=== PATIENT | female | born 1990 | race Two or more races ===

== ENCOUNTER 2018-10-12 17:10 | Day surgery (SDC) | payer BC ==
--- NOTE | 2018-10-12 17:36 | EDM.PDOC ---
ED HPI GENERAL MEDICAL PROBLEM - General Chief Complaint: GUARD DANCE HALL Problem Stated Complaint: 5 WEEKS PREG. BLEEDING Time Seen by Provider: 10/12/18 17:28 Source of Information: Reports: [facility] Records History Limitations: Reports: No Limitations - History of Present Illness INITIAL COMMENTS - FREE TEXT/NARRATIVE: HISTORY AND PHYSICAL: History of present illness: Patient is a 28-year-old female who presents to the ED today with concern of bleeding, and abdominal pain in early . Patient states she had an initial OB/confirmation of at [facility], however, she is desiring transfer of care to [facility]. Patient states the bleeding has been ongoing for the past several days. Patient states today, however, she began to experience lower left abdominal pain. She rates her pain a 10 out of 10 and sharp. She states the pain is worse when she touches her abdomen and better when she lays down. Patient states that initially she just had some brown spotting over the past day she has had a brighter red blood and today has had to wear a pad. She has only gone through 1 pad today. Patient has a history of 2 prior but denies any other abdominal surgeries. Patient has had bowel movements per her normal. Her last bowel movement was last night was normal for her. She denies any difficulties urinating. She denies any abnormal vaginal discharge other than bleeding. Patient denies fever, chills, chest pain, shortness of breath, or cough. Denies headache, neck stiff ness, change in vision, syncope, or near syncope. Denies nausea, vomiting, diarrhea, constipation, or dysuria. Has not noted any blood in urine or stool. Patient has been eating and drinking appropriately. Review of systems: As per history of present illness and below otherwise all systems reviewed and negative. Past medical history: As per history of present illness and as reviewed below otherwise noncontributory. Surgical history: As per history of present illness and as reviewed below otherwise noncontributory. Social history: See social history for further information Family history: As per history of present illness and as reviewed below otherwise noncontributory. Physical exam: General: Patient is alert, oriented, and in no acute distress. Patient sitting comfortably on exam table. HEENT: Atraumatic, normocephalic, pupils equal and reactive bilaterally, negative for conjunctival pallor or scleral icterus, mucous membranes moist, TMs normal bilaterally, throat clear, neck supple, nontender, trachea midline. No drooling or trismus noted. No meningeal signs. No hot potato voice noted. Lungs: Clear to auscultation, breath sounds equal bilaterally, chest nontender. Heart: S1S2, regular rate and rhythm without overt murmur Abdomen: Exam of abdomen limited due to pain. Severe pain to palpation of the left lower quadrant/suprapubic area. Positive bowel sounds heard throughout all quadrants. Soft, nondistended. Negative for masses or hepatosplenomegaly. Negative for costovertebral tenderness. Pelvis: Stable nontender. Genitourinary: External genitalia within normal limits. There is a moderate amount of bright red blood in the vaginal vault. Cervical os is closed. Negative cervical motion tenderness. The uterus is approximately 6-8 weeks in size and more tender on the left. Rectal: Deferred. Skin: Intact, warm, dry. No lesions or rashes noted. Extremities: Atraumatic, negative for cords or calf pain. Neurovascular unremarkable. Neuro: Awake, alert, oriented. Cranial nerves II through XII unremarkable. Cerebellum unremarkable. Motor and sensory unremarkable throughout. Exam nonfocal. Notes: We'll do labs and imaging today. Dr. Florez was consulted on patient and has come in to see patient. Please see Dr. Florez's formal consult for definitive disposition. Patient was taken to the OR with Dr. Florez. Diagnostics: CBC, CMP, UA, urine hCG, hcg quant, Rh/blood type, TVUS Therapeutics: Saline Impression: Ectopic Urinary Tract Infection Plan: 1. Please see Dr. Florez's formal consult for definitive plan 2. Patient taken to OR with Dr. Florez Definitive disposition and diagnosis as appropriate pending reevaluation and review of above. Lower Abdomen Pain Score (Numeric/FACES): 7 - Related Data Allergies Allergy/AdvReac Type Severity Reaction Status Date / Time No Known Allergies Allergy Verified 10/13/18 05:20 Home Meds: Home Meds [id number]/Iron Fumarate/FA/DSS [ 19 Tablet] 1 tab PO DAILY 10/12/18 [ History] Past Medical History Respiratory History: Reports: COPD GUARD DANCE HALL History: Reports: Other GUARD DANCE HALL History: Pt states being 5 weeks Psychiatric History: Reports: Anxiety - Infectious Disease History Infectious Disease History: Reports: Chicken Pox - Past Surgical History Female Surgical History: Reports: Section Social & Family History - Tobacco Use Smoking Status *Q: Never Smoker - Recreational Drug Use Recreational Drug Use: No ED ROS GENERAL - Review of Systems Review Of Systems: ROS reveals no pertinent complaints other than HPI. ED EXAM - Physical Exam Exam: See Below (see dictation) Course - Vital Signs Last Recorded V/S: Last Vital Signs Temp 36.9 C 10/13/18 07:40 Pulse 121 H 10/13/18 07:40 Resp 16 10/13/18 07:40 BP 116/59 L 10/13/18 07:40 Pulse Ox 98 10/13/18 07:40 - Orders/Labs/Meds Labs: Laboratory Tests 10/12/18 10/12/18 10/12/18 Range/Units 17:39 17:53 17:53 WBC 6.20 (4.0-11.0) K/uL RBC 4.70 (4.30-5.90) M/uL Hgb 14.5 (12.0-16.0) g/dL Hct 40.9 (36.0-46.0) % MCV 87.0 (80.0-98.0) fL MCH 30.9 (27.0-32.0) pg MCHC 35.5 (31.0-37.0) g/dL RDW Std Deviation 39.7 (28.0-62.0) fl RDW Coeff of Sonlai 12 (11.0-15.0) % Plt Count 250 (150-400) K/uL MPV 10.60 (7.40-12.00) fL Neut % (Auto) 51.4 (48.0-80.0) % Lymph % (Auto) 38.2 (16.0-40.0) % [place] % (Auto) 7.7 (0.0-15.0) % Eos % (Auto) 2.4 (0.0-7.0) % Baso % (Auto) 0.3 (0.0-1.5) % Neut # (Auto) 3.2 (1.4-5.7) K/uL Lymph # (Auto) 2.4 (0.6-2.4) K/uL [place] # (Auto) 0.5 (0.0-0.8) K/uL Eos # (Auto) 0.2 (0.0-0.7) K/uL Baso # (Auto) 0.0 (0.0-0.1) K/uL Nucleated RBC % 0.0 /100WBC Nucleated RBCs # 0 K/uL Sodium (136-145) mmol/L Potassium (3.5-5.1) mmol/L Chloride (98-107) mmol/L Carbon Dioxide (21.0-32.0) mmol/L BUN (7.0-18.0) mg/dL Creatinine (0.6-1.0) mg/dL Est Cr Clr Drug Dosing mL/min Estimated GFR (MDRD) ml/min Glucose (74-106) mg/dL Calcium (8.5-10.1) mg/dL HCG, Quant 507.0 mIU/mL Urine Color YELLOW Urine Appearance SLT CLOUDY Urine pH 5.5 (5.0-8.0) Ur Specific [place] 1.025 (1.001-1.035) Urine Protein NEGATIVE (NEGATIVE) mg/dL Urine Glucose (UA) NEGATIVE (NEGATIVE) mg/dL Urine Ketones NEGATIVE (NEGATIVE) mg/dL Urine Occult Blood LARGE H (NEGATIVE) Urine Nitrite NEGATIVE (NEGATIVE) Urine Bilirubin NEGATIVE (NEGATIVE) Urine Urobilinogen 0.2 (<2.0) EU/dL Ur Leukocyte Esterase TRACE H (NEGATIVE) Urine RBC 0-2 (0-2/HPF) Urine WBC 4-6 (0-5/HPF) Ur Epithelial Cells MODERATE (NONE-FEW) Urine Bacteria FEW (NEGATIVE) Urine HCG, Qual (NEGATIVE) Gayatri species DNA (NEGATIVE) Gardnerella DNA Probe (NEGATIVE) Trichomonas DNA Probe (NEGATIVE) Blood Type 10/12/18 10/12/18 10/12/18 Range/Units 17:53 18:45 19:03 WBC (4.0-11.0) K/uL RBC (4.30-5.90) M/uL Hgb (12.0-16.0) g/dL Hct (36.0-46.0) % MCV (80.0-98.0) fL MCH (27.0-32.0) pg MCHC (31.0-37.0) g/dL RDW Std Deviation (28.0-62.0) fl RDW Coeff of Sonali (11.0-15.0) % Plt Count (150-400) K/uL MPV (7.40-12.00) fL Neut % (Auto) (48.0-80.0) % Lymph % (Auto) (16.0-40.0) % [place] % (Auto) (0.0-15.0) % Eos % (Auto) (0.0-7.0) % Baso % (Auto) (0.0-1.5) % Neut # (Auto) (1.4-5.7) K/uL Lymph # (Auto) (0.6-2.4) K/uL [place] # (Auto) (0.0-0.8) K/uL Eos # (Auto) (0.0-0.7) K/uL Baso # (Auto) (0.0-0.1) K/uL Nucleated RBC % /100WBC Nucleated RBCs # K/uL Sodium (136-145) mmol/L Potassium (3.5-5.1) mmol/L Chloride (98-107) mmol/L Carbon Dioxide (21.0-32.0) mmol/L BUN (7.0-18.0) mg/dL Creatinine (0.6-1.0) mg/dL Est Cr Clr Drug Dosing mL/min Estimated GFR (MDRD) ml/min Glucose (74-106) mg/dL Calcium (8.5-10.1) mg/dL HCG, Quant mIU/mL Urine Color Urine Appearance Urine pH (5.0-8.0) Ur Specific [place] (1.001-1.035) Urine Protein (NEGATIVE) mg/dL Urine Glucose (UA) (NEGATIVE) mg/dL Urine Ketones (NEGATIVE) mg/dL Urine Occult Blood (NEGATIVE) Urine Nitrite (NEGATIVE) Urine Bilirubin (NEGATIVE) Urine Urobilinogen (<2.0) EU/dL Ur Leukocyte Esterase (NEGATIVE) Urine RBC (0-2/HPF) Urine WBC (0-5/HPF) Ur Epithelial Cells (NONE-FEW) Urine Bacteria (NEGATIVE) Urine HCG, Qual POSITIVE (NEGATIVE) Gayatri species DNA NEGATIVE (NEGATIVE) Gardnerella DNA Probe POSITIVE H (NEGATIVE) Trichomonas DNA Probe NEGATIVE (NEGATIVE) Blood Type A POSITIVE 10/13/18 10/13/18 Range/Units 05:30 05:30 WBC 7.87 (4.0-11.0) K/uL RBC 4.40 (4.30-5.90) M/uL Hgb 13.6 (12.0-16.0) g/dL Hct 38.2 (36.0-46.0) % MCV 86.8 (80.0-98.0) fL MCH 30.9 (27.0-32.0) pg MCHC 35.6 (31.0-37.0) g/dL RDW Std Deviation 38.5 (28.0-62.0) fl RDW Coeff of Sonali 12 (11.0-15.0) % Plt Count 221 (150-400) K/uL MPV 10.70 (7.40-12.00) fL Neut % (Auto) 89.0 H (48.0-80.0) % Lymph % (Auto) 9.4 L (16.0-40.0) % [place] % (Auto) 1.5 (0.0-15.0) % Eos % (Auto) 0.0 (0.0-7.0) % Baso % (Auto) 0.1 (0.0-1.5) % Neut # (Auto) 7.0 H (1.4-5.7) K/uL Lymph # (Auto) 0.7 (0.6-2.4) K/uL [place] # (Auto) 0.1 (0.0-0.8) K/uL Eos # (Auto) 0.0 (0.0-0.7) K/uL Baso # (Auto) 0.0 (0.0-0.1) K/uL Nucleated RBC % 0.0 /100WBC Nucleated RBCs # 0 K/uL Sodium 137 (136-145) mmol/L Potassium 4.3 (3.5-5.1) mmol/L Chloride 104 (98-107) mmol/L Carbon Dioxide 24.1 (21.0-32.0) mmol/L BUN 14 (7.0-18.0) mg/dL Creatinine 0.9 (0.6-1.0) mg/dL Est Cr Clr Drug Dosing 66.25 mL/min Estimated GFR (MDRD) > 60.0 ml/min Glucose 118 H (74-106) mg/dL Calcium 8.0 L (8.5-10.1) mg/dL HCG, Quant mIU/mL Urine Color Urine Appearance Urine pH (5.0-8.0) Ur Specific [place] (1.001-1.035) Urine Protein (NEGATIVE) mg/dL Urine Glucose (UA) (NEGATIVE) mg/dL Urine Ketones (NEGATIVE) mg/dL Urine Occult Blood (NEGATIVE) Urine Nitrite (NEGATIVE) Urine Bilirubin (NEGATIVE) Urine Urobilinogen (<2.0) EU/dL Ur Leukocyte Esterase (NEGATIVE) Urine RBC (0-2/HPF) Urine WBC (0-5/HPF) Ur Epithelial Cells (NONE-FEW) Urine Bacteria (NEGATIVE) Urine HCG, Qual (NEGATIVE) Gayatri species DNA (NEGATIVE) Gardnerella DNA Probe (NEGATIVE) Trichomonas DNA Probe (NEGATIVE) Blood Type Meds: Medications Discontinued Medications Generic Name Dose Route Start Last Admin Trade Name Freq PRN Reason Stop Dose Admin Albuterol 2.5 mg 10/12/18 23:40 Proventil Neb Soln NEB Q6HRRT PRN Wheezing Atropine Sulfate 0.4 mg 10/12/18 23:40 Atropine 0.1 Mg/Ml IVPUSH Q5M PRN Bradycardia Dexamethasone Confirm 10/12/18 22:23 Dexamethasone Administered 10/12/18 22:24 Dose 20 mg .ROUTE .STK-MED ONE Fentanyl Confirm 10/12/18 22:23 Sublimaze Administered 10/12/18 22:24 Dose 250 mcg .ROUTE .STK-MED ONE Fentanyl 50 mcg 10/12/18 23:40 Sublimaze IVPUSH 10/13/18 23:40 Q5M PRN Pain (severe 7-10) Hydralazine HCl 5 mg 10/12/18 23:40 Apresoline IVPUSH ONETIME PRN Hypertension Hydralazine HCl 10 mg 10/12/18 23:40 Apresoline IVPUSH ONETIME PRN Hypertension Hydromorphone HCl 0.25 mg 10/12/18 23:40 Dilaudid IVPUSH 10/13/18 23:40 Q10M PRN Pain (severe 7-10) Sodium Chloride 1,000 mls @ 150 mls/hr 10/12/18 21:25 10/12/18 21:26 Normal Saline IV 10/13/18 04:04 150 mls/hr .Bolus ONE Administration Ketorolac Tromethamine Confirm 10/12/18 22:23 Toradol Administered 10/12/18 22:24 Dose 30 mg .ROUTE .STK-MED ONE Ketorolac Tromethamine 30 mg 10/12/18 23:52 10/13/18 01:24 Toradol IVPUSH 10/12/18 23:53 Not Given ONETIME ONE Ketorolac Tromethamine 30 mg 10/12/18 23:52 Toradol IVPUSH 10/17/18 23:52 Q6H PRN Pain (severe 7-10) Labetalol HCl 10 mg 10/12/18 23:40 Normodyne IVPUSH 10/13/18 23:40 Q6H PRN Hypertension Lidocaine Confirm 10/12/18 22:23 Xylocaine-Mpf 2% Administered 10/12/18 22:24 Dose 5 ml .ROUTE .STK-MED ONE Meperidine HCl 12.5 mg 10/12/18 23:40 Demerol IVPUSH ONETIME PRN Shivering Meperidine HCl 25 mg 10/12/18 23:40 Demerol IV ONETIME PRN Shivering Metoclopramide HCl 10 mg 10/12/18 23:40 Reglan IVPUSH ONETIME PRN Nausea Midazolam HCl Confirm 10/12/18 22:23 Versed 1 Mg/Ml Administered 10/12/18 22:24 Dose 2 mg .ROUTE .STK-MED ONE Morphine Sulfate 4 mg 10/12/18 23:40 Morphine IVPUSH 10/13/18 23:40 Q10M PRN Pain (severe 7-10) Morphine Sulfate 4 mg 10/12/18 23:52 Morphine IVPUSH Q2H PRN Pain (severe 7-10) Naloxone HCl 0.1 mg 10/12/18 23:40 Narcan IVPUSH ONETIME PRN Respiratory Depression Octyl Cyanoacrylate Confirm 10/12/18 23:49 Dermabond Advance Administered 10/12/18 23:50 Dose 1 applic .ROUTE .STK-MED ONE Ondansetron HCl Confirm 10/12/18 22:23 Zofran Administered 10/12/18 22:24 Dose 8 mg .ROUTE .STK-MED ONE Ondansetron HCl 8 mg 10/12/18 23:40 Zofran IVPUSH ONETIME PRN Nausea Ondansetron HCl 4 mg 10/12/18 23:52 Zofran IVPUSH Q6H PRN Nausea/Vomiting Oxycodone/Acetaminophen 1 tab 10/12/18 23:52 Percocet 325-5 Mg PO Q4H PRN Pain (moderate 4-6) Oxycodone/Acetaminophen 2 tab 10/12/18 23:52 Percocet 325-5 Mg PO Q4H PRN Pain (moderate 4-6) Phenylephrine HCl Confirm 10/12/18 23:54 Phenylephrine In Ns 100 Mcg/Ml Administered 10/12/18 23:55 Dose 1 mg .ROUTE .STK-MED ONE Promethazine HCl 12.5 mg 10/12/18 23:40 Phenergan IM ONETIME PRN Nausea Promethazine HCl 25 mg 10/12/18 23:52 Phenergan IM Q6H PRN Nausea/Vomiting Propofol Confirm 10/12/18 22:23 Diprivan 20 Ml Administered 10/12/18 22:24 Dose 200 mg .ROUTE .STK-MED ONE Rocuronium [place] Confirm 10/12/18 22:25 Zemuron Administered 10/12/18 22:26 Dose 100 mg .ROUTE .STK-MED ONE Scopolamine 1.5 mg 10/12/18 23:40 Transderm-Scop TRDERM Q72H PRN Nausea Sodium Chloride 10 ml 10/12/18 20:58 10/12/18 21:26 Saline Flush FLUSH 10 ml ASDIRECTED PRN Administration Keep Vein Open Sodium Chloride 2.5 ml 10/12/18 20:58 10/12/18 21:26 Saline Flush FLUSH 2.5 ml ASDIRECTED PRN Administration Keep Vein Open Sugammadex Sodium Confirm 10/12/18 23:47 Bridion Administered 10/12/18 23:48 Dose 200 mg .ROUTE .STK-MED ONE Departure - Departure Time of Disposition: 11:59 Disposition: Still A Patient 30 Clinical Impression: Ectopic Qualifiers: Location of ectopic : tubal Intrauterine status: without intrauterine Laterality: right Qualified Code(s): O00.101 - Right tubal without intrauterine Urinary tract infection Qualifiers: Urinary tract infection type: site unspecified Hematuria presence: without hematuria Qualified Code(s): N39.0 - Urinary tract infection, site not specified - Discharge Information
--- NOTE | 2018-10-12 20:52 | US ---
INDICATION: , vaginal bleeding. TECHNIQUE: Ultrasound pelvis transvaginal for better assessment or to better visualize the endometrium. Real-time sonographic images with spectral and color Doppler imaging of the ovaries were obtained. COMPARISON: None FINDINGS: Uterus: 9.4 x 6.0 x 6.7 cm. Posterior intramural fibroid measuring 2.3 x 1.2 x 2.6 centimeters. Endometrium: Transvaginal imaging was performed to better evaluate the endometrium. Endometrial thickness measures 10 mm. No sign of endometrial mass or fluid. Right ovary measures 2.8 x 3.0 x 2.2 centimeters with normal blood flow. Adjacent to the right ovary is a hypoechoic vascular lesion which appears separate from the ovary measuring 2.7 x 2.4 x 3.9 centimeters. Left ovary measures 1.6 x 1.7 x 2.0 centimeters with normal blood flow. Cul-de-sac: Small free fluid. IMPRESSION: 1. No intrauterine gestation seen. Within the right adnexa there is avascular 3.9 x 2.4 x 2.7 centimeter lesion which appears separate from the right ovary. With the clinical history of a positive , this is considered suspicious for an ectopic . Small free fluid right adnexa. Results called to Dr. Navarro at 2049 on 10/12/2018 Dictated by Catracho Massey MD @ Oct 12 2018 8:37PM Signed by Dr. Catracho Massey @ Oct 12 2018 8:51PM
[2018-10-12] MEDS ORDERED: Sodium Chloride 0.9% 10 ML Syringe FLUSH PRN (20:58)
[2018-10-12] MEDS ORDERED: Sodium Chloride 0.9% 2.5 ML Syringe FLUSH PRN (20:58)
[2018-10-12] MEDS ORDERED: Sodium Chloride 0.9% 1,000 ML IV ONE (21:25)
[2018-10-12] MEDS ORDERED: fentaNYL 250 MCG/5 ML SDV ONE (22:23)
[2018-10-12] MEDS ORDERED: Dexamethasone 4 MG/ML 5 ML MDV ONE (22:23)
[2018-10-12] MEDS ORDERED: Propofol 200 MG/20 ML SDV ONE (22:23)
[2018-10-12] MEDS ORDERED: Ondansetron 4 MG/2 ML SDV ONE (22:23)
[2018-10-12] MEDS ORDERED: Lidocaine 2% 5 ML SDV ONE (22:23)
[2018-10-12] MEDS ORDERED: Midazolam 1 MG/ML 2 ML SDV ONE (22:23)
[2018-10-12] MEDS ORDERED: Ketorolac 30 MG/ML SDV ONE (22:23)
[2018-10-12] MEDS ORDERED: Rocuronium 100 MG/10 ML Syringe ONE (22:25)
[2018-10-12] MEDS ORDERED: Albuterol 0.083% 2.5 MG/3 ML Neb Soln NEB PRN (23:40)
[2018-10-12] MEDS ORDERED: Atropine 0.1 MG/ML 10 ML Syringe IVPUSH PRN (23:40)
[2018-10-12] MEDS ORDERED: fentaNYL 100 MCG/2 ML SDV IVPUSH PRN (23:40)
[2018-10-12] MEDS ORDERED: Promethazine 25 MG/ML SDV IM PRN ×2 (23:40→23:52)
[2018-10-12] MEDS ORDERED: Morphine 4 MG/ML Syringe IVPUSH PRN ×2 (23:40→23:52)
[2018-10-12] MEDS ORDERED: Meperidine PF 25 MG/ML Syringe IVPUSH PRN (23:40)
[2018-10-12] MEDS ORDERED: Ondansetron 4 MG/2 ML SDV IVPUSH PRN ×2 (23:40→23:52)
[2018-10-12] MEDS ORDERED: hydrALAZINE 20 MG/ML SDV IVPUSH PRN ×2 (23:40)
[2018-10-12] MEDS ORDERED: Meperidine PF 25 MG/ML Syringe IV PRN (23:40)
[2018-10-12] MEDS ORDERED: Scopolamine 1.5 MG Transdermal Patch TRDERM PRN (23:40)
[2018-10-12] MEDS ORDERED: Metoclopramide 10 MG/2 ML SDV IVPUSH PRN (23:40)
[2018-10-12] MEDS ORDERED: HYDROmorphone 2 MG/ML SDV IVPUSH PRN (23:40)
[2018-10-12] MEDS ORDERED: Labetalol 20 MG/4 ML Syringe IVPUSH PRN (23:40)
[2018-10-12] MEDS ORDERED: Acetaminophen/HYDROcodone 325-5 MG Tab PO PRN (23:40)
[2018-10-12] MEDS ORDERED: Naloxone 0.4 MG/ML Syringe IVPUSH PRN (23:40)
--- NOTE | 2018-10-12 23:40 | PCM.PREANE ---
Preanesthetic Assessment - Anesthesia/Transfusion/Family Hx Anesthesia History: Prior Anesthesia Without Reaction Family History of Anesthesia Reaction: No - Review of Systems General: No Symptoms Pulmonary: No Symptoms Cardiovascular: No Symptoms Gastrointestinal: No Symptoms, Abdominal Pain, Nausea Neurological: No Symptoms - Physical Assessment NPO Status Date: 10/12/18 NPO Status Time: 13:00 Pulse: 80 O2 Sat by Pulse Oximetry: 100 Respiratory Rate: 14 Blood Pressure: 115/75 Vital Signs: Last Vital Signs Temp 36.5 C 10/12/18 21:59 Pulse 102 H 10/12/18 21:59 Resp 14 10/12/18 21:59 BP 124/76 10/12/18 21:59 Pulse Ox 100 10/12/18 21:59 Weight: 47 kg ASA Class: 1E Mental Status: Alert & Oriented x3 Airway Class: Mallampati = 1 Dentition: Reports: Normal Dentition Lungs: Clear to Auscultation, Normal Respiratory Effort Cardiovascular: Regular Rate, Regular Rhythm - Lab Values: Laboratory Last Values WBC 6.20 K/uL (4.0-11.0) 10/12/18 17:53 RBC 4.70 M/uL (4.30-5.90) 10/12/18 17:53 Hgb 14.5 g/dL (12.0-16.0) 10/12/18 17:53 Hct 40.9 % (36.0-46.0) 10/12/18 17:53 MCV 87.0 fL (80.0-98.0) 10/12/18 17:53 MCH 30.9 pg (27.0-32.0) 10/12/18 17:53 MCHC 35.5 g/dL (31.0-37.0) 10/12/18 17:53 RDW Std Deviation 39.7 fl (28.0-62.0) 10/12/18 17:53 RDW Coeff of Sonali 12 % (11.0-15.0) 10/12/18 17:53 Plt Count 250 K/uL (150-400) 10/12/18 17:53 MPV 10.60 fL (7.40-12.00) 10/12/18 17:53 Neut % (Auto) 51.4 % (48.0-80.0) 10/12/18 17:53 Lymph % (Auto) 38.2 % (16.0-40.0) 10/12/18 17:53 [place] % (Auto) 7.7 % (0.0-15.0) 10/12/18 17:53 Eos % (Auto) 2.4 % (0.0-7.0) 10/12/18 17:53 Baso % (Auto) 0.3 % (0.0-1.5) 10/12/18 17:53 Neut # (Auto) 3.2 K/uL (1.4-5.7) 10/12/18 17:53 Lymph # (Auto) 2.4 K/uL (0.6-2.4) 10/12/18 17:53 [place] # (Auto) 0.5 K/uL (0.0-0.8) 10/12/18 17:53 Eos # (Auto) 0.2 K/uL (0.0-0.7) 10/12/18 17:53 Baso # (Auto) 0.0 K/uL (0.0-0.1) 10/12/18 17:53 Nucleated RBC % 0.0 /100WBC 10/12/18 17:53 Nucleated RBCs # 0 K/uL 10/12/18 17:53 HCG, Quant 507.0 mIU/mL 10/12/18 17:53 Urine Color YELLOW 10/12/18 17:39 Urine Appearance SLT CLOUDY 10/12/18 17:39 Urine pH 5.5 (5.0-8.0) 10/12/18 17:39 Ur Specific [place] 1.025 (1.001-1.035) 10/12/18 17:39 Urine Protein NEGATIVE mg/dL (NEGATIVE) 10/12/18 17:39 Urine Glucose (UA) NEGATIVE mg/dL (NEGATIVE) 10/12/18 17:39 Urine Ketones NEGATIVE mg/dL (NEGATIVE) 10/12/18 17:39 Urine Occult Blood LARGE (NEGATIVE) H 10/12/18 17:39 Urine Nitrite NEGATIVE (NEGATIVE) 10/12/18 17:39 Urine Bilirubin NEGATIVE (NEGATIVE) 10/12/18 17:39 Urine Urobilinogen 0.2 EU/dL (<2.0) 10/12/18 17:39 Ur Leukocyte Esterase TRACE (NEGATIVE) H 10/12/18 17:39 Urine RBC 0-2 (0-2/HPF) 10/12/18 17:39 Urine WBC 4-6 (0-5/HPF) 10/12/18 17:39 Ur Epithelial Cells MODERATE (NONE-FEW) 10/12/18 17:39 Urine Bacteria FEW (NEGATIVE) 10/12/18 17:39 Urine HCG, Qual POSITIVE (NEGATIVE) 10/12/18 18:45 Gayatri species DNA NEGATIVE (NEGATIVE) 10/12/18 19:03 Gardnerella DNA Probe POSITIVE (NEGATIVE) H 10/12/18 19:03 Trichomonas DNA Probe NEGATIVE (NEGATIVE) 10/12/18 19:03 Blood Type A POSITIVE 10/12/18 17:53 - Allergies Allergies/Adverse Reactions: Allergies Allergy/AdvReac Type Severity Reaction Status Date / Time No Known Allergies Allergy Verified 10/12/18 17:27 - Acknowledgements Anesthesia Type Planned: General Anesthesia Pt an Appropriate Candidate for the Planned Anesthesia: Yes Alternatives and Risks of Anesthesia Discussed w Pt/Guardian: Yes Pt/Guardian Understands and Agrees with Anesthesia Plan: Yes PreAnesthesia Questionnaire Respiratory History: Reports: COPD [employer]CH[employer]ICIAN History: Reports: Other OB/BYN History: Pt states being 5 weeks Psychiatric History: Reports: Anxiety - Infectious Disease History Infectious Disease History: Reports: Chicken Pox - Past Surgical History Female Surgical History: Reports: Section - SUBSTANCE USE Smoking Status *Q: Never Smoker Recreational Drug Use History: No - HOME MEDS Home Medications: Home Meds [id number]/Iron Fumarate/FA/DSS [ 19 Tablet] 1 tab PO DAILY 10/12/18 [ History] - CURRENT (IN HOUSE) MEDS Current Meds: Current Medications Sodium Chloride (Normal Saline) 1,000 mls @ 150 mls/hr IV .Bolus ONE Stop: 10/13/18 04:04 Last Admin: 10/12/18 21:26 Dose: 150 mls/hr Sodium Chloride (Saline Flush) 10 ml FLUSH ASDIRECTED PRN PRN Reason: Keep Vein Open Last Admin: 10/12/18 21:26 Dose: 10 ml Sodium Chloride (Saline Flush) 2.5 ml FLUSH ASDIRECTED PRN PRN Reason: Keep Vein Open Last Admin: 10/12/18 21:26 Dose: 2.5 ml Discontinued Medications Dexamethasone (Dexamethasone) Confirm Administered Dose 20 mg .ROUTE .STK-MED ONE Stop: 10/12/18 22:24 Fentanyl (Sublimaze) Confirm Administered Dose 250 mcg .ROUTE .STK-MED ONE Stop: 10/12/18 22:24 Ketorolac Tromethamine (Toradol) Confirm Administered Dose 30 mg .ROUTE .STK- MED ONE Stop: 10/12/18 22:24 Lidocaine (Xylocaine-Mpf 2%) Confirm Administered Dose 5 ml .ROUTE .STK-MED ONE Stop: 10/12/18 22:24 Midazolam HCl (Versed 1 Mg/Ml) Confirm Administered Dose 2 mg .ROUTE .STK-MED ONE Stop: 10/12/18 22:24 Ondansetron HCl (Zofran) Confirm Administered Dose 8 mg .ROUTE .STK-MED ONE Stop: 10/12/18 22:24 Propofol (Diprivan 20 Ml) Confirm Administered Dose 200 mg .ROUTE .STK-MED ONE Stop: 10/12/18 22:24 Rocuronium [place] (Zemuron) Confirm Administered Dose 100 mg .ROUTE .STK-MED ONE Stop: 10/12/18 22:26
[2018-10-12] MEDS ORDERED: Sugammadex Sodium 200 MG/2 ML VIAL ONE (23:47)
[2018-10-12] MEDS ORDERED: Octyl 2-Cyanoacrylate 1 Tube ONE (23:49)
[2018-10-12] MEDS ORDERED: Acetaminophen/oxyCODONE 325-5 MG Tab PO PRN ×2 (23:52)
[2018-10-12] MEDS ORDERED: Ketorolac 30 MG/ML SDV IVPUSH ONE (23:52)
[2018-10-12] MEDS ORDERED: Ketorolac 30 MG/ML SDV IVPUSH PRN (23:52)
[2018-10-12] MEDS ORDERED: Phenylephrine/Normal Saline 100 MCG/ML 10 ML Syringe ONE (23:54)
--- NOTE | 2018-10-12 23:55 | PCM.OPNOTE ---
- General Post-Op/Procedure Note Date of Surgery/Procedure: 10/12/18 Operative Procedure(s): D&E dignostic Laparascopy Post-Op Diagnosis: Same Anesthesia Technique: General LMA Primary Surgeon: Aleksandr Florez EBL in mLs: 50 Complications: None Condition: Fair
--- NOTE | 2018-10-13 00:37 | PCM48HPAN ---
Post Anesthesia Note - EVALUATION WITHIN 48HRS OF ANESTHETIC Vital Signs in Normal Range: Yes Patient Participated in Evaluation: Yes Respiratory Function Stable: Yes Airway Patent: Yes Cardiovascular Function Stable: Yes Hydration Status Stable: Yes Pain Control Satisfactory: Yes Nausea and Vomiting Control Satisfactory: Yes Mental Status Recovered: Yes Pulse Rate: 80 Resp Rate: 24 Blood Pressure: 115/75
--- NOTE | 2018-10-13 01:20 | CONS ---
DATE OF CONSULTATION: DATE OF : 1990 PRIMARY CARE PHYSICIAN: Uli PCP BRIEF HISTORY: Laquita is a 28-year-old patient. She is para 2-0-0-2. Both of them are delivered via vaginal delivery. Her last period is September 04. She had home positive test. The patient has had no care in this . She is about 6 weeks . She has a sudden onset of lower abdominal pain in the right lower quadrant and the patient is referred for the purpose of this consultation. I reviewed her ultrasound and I reviewed her lab work. In her lab work, she had a positive HCG level of 500. Her ultrasound shows empty uterus with adnexal mass and free fluid, highly suspicious for tubal . PHYSICAL EXAMINATION: On her examination, the patient's lower abdominal examination is guarding and tender. She has rebound tenderness mainly to the right side and pelvic examination is not performed at this time because of the patient's tenderness. ASSESSMENT: Most likely, the patient does have ruptured tubal . I discussed these findings with the patient and her and since her level is only 500, I gave them the option to have a medical treatment with methotrexate or a surgical treatment with a diagnostic laparoscopy. After explaining the advantage and disadvantage of the medical and surgical treatment, the patient and her have asked appropriate question and they elected to do with the surgical procedure and surgical treatment, so we can call the operative team and we are planning to do a diagnostic laparoscopy and treatment of tubal and also prior to that I am going to do dilatation and evacuation. Detail of the procedure discussed with the patient. Informed consent discussed with the patient. The patient signed informed consent. We will proceed to the operative room as soon as operative teams arrive to the hospital. BRIANNE GOLDSMITH /[id number]
--- NOTE | 2018-10-13 03:36 | OR ---
SURGEON: Aleksandr Florez MD DATE OF PROCEDURE: PREOPERATIVE DIAGNOSIS: Pelvic pain, suspecting tubal versus incomplete miscarriage. POSTOPERATIVE DIAGNOSIS: Pelvic pain, suspecting tubal versus incomplete miscarriage. OPERATION PERFORMED: D and E, diagnostic laparoscopy. PRIMARY SURGEON: Aleksandr Florez MD. SENIOR PROJECT ACCOUNTANT: YUDI prakash. ANESTHESIA: General, Cyrus Jacome. ESTIMATED BLOOD LOSS: 50 mL. COMPLICATIONS: None. FINDING: There was products of conception on the D and E and diagnostic laparoscopy was negative. INDICATION FOR SURGERY: This patient is 28, para 2-0-0-2. She had a positive test with a quant of 500. She has pelvic pain, especially on the right side. She had a pelvic ultrasound, which shows free fluid, empty uterus, and adnexal mass with a strong possible tubal . I did a consultation in the ER. I gave the patient a choice of medical therapy with methotrexate versus surgical therapy and after consultation the patient with her and her relative, she elected to have surgical therapy approach. So we scheduled her for a D and E and diagnostic laparoscopy. PROCEDURE IN DETAIL: The patient was brought to the OR, properly identified. After adequate level of anesthesia, the patient was placed in the lithotomy position, prepped and draped in sterile fashion as usual and then a straight catheter was used to empty the bladder and the cervix sequentially dilated to accommodate #7 cannula and the endometrial cavity was evacuated. Small product thinking and maybe products of conception seen is collected and sent for histopathology and then Hulka manipulator placed in the uterus for manipulation and after the surgeon and assistant golf course superintendent changed their gloves, operation shifted abdominally. Stab wound was done beneath the umbilicus. The Veress needle placed in the peritoneal cavity and that cavity insufflated to 3.5 L of carbon dioxide and then utilizing the Visiport technique, the peritoneal cavity is entered under direct vision. Once we entered, then 5 mm trocar placed in the left iliac fossa. Inspection of the pelvis revealed that the uterus is normal. There is no blood in the cul-de-sac. Both tubes and ovaries are visualized and they are completely normal, so tubal is ruled out. Once that is ruled out, the procedure ended. The instrument and hardware retrieved from the abdomen and the vagina and the multiple laparoscopic incisions were closed in layers. Instrument and sponge counts were correct. The patient tolerated the procedure well and went to recovery room in stable general condition. BRIANNE / RUPAL /[id number]
[2018-10-13 06:15] LABS: CHLORIDE,CL 104 mmol/L (98-107); SODIUM,NA 137 mmol/L (136-145)
--- NOTE | 2018-10-13 09:09 | PCM.SURGPN ---
- General Info Date of Service: 10/09/18 POD#: 1 Functional Status: Reports: Pain Controlled - Review of Systems General: Reports: No Symptoms HEENT: Reports: No Symptoms Pulmonary: Reports: No Symptoms Cardiovascular: Reports: No Symptoms Gastrointestinal: Reports: No Symptoms Genitourinary: Reports: No Symptoms Musculoskeletal: Reports: No Symptoms Skin: Reports: No Symptoms Neurological: Reports: No Symptoms Psychiatric: Reports: No Symptoms - Patient Data Vitals - Most Recent: Last Vital Signs Temp 36.9 C 10/13/18 07:40 Pulse 121 H 10/13/18 07:40 Resp 16 10/13/18 07:40 BP 116/59 L 10/13/18 07:40 Pulse Ox 98 10/13/18 07:40 Weight - Most Recent: 47 kg I&O - Last 24 Hours: Intake & Output 10/12/18 10/13/18 10/13/18 22:59 06:59 14:59 Intake Total 2000 Output Total 300 Balance 1700 Lab Results Last 24 Hrs: Laboratory Results - last 24 hr 10/12/18 10/12/18 10/12/18 Range/Units 17:39 17:53 17:53 WBC 6.20 (4.0-11.0) K/uL RBC 4.70 (4.30-5.90) M/uL Hgb 14.5 (12.0-16.0) g/dL Hct 40.9 (36.0-46.0) % MCV 87.0 (80.0-98.0) fL MCH 30.9 (27.0-32.0) pg MCHC 35.5 (31.0-37.0) g/dL RDW Std Deviation 39.7 (28.0-62.0) fl RDW Coeff of Sonali 12 (11.0-15.0) % Plt Count 250 (150-400) K/uL MPV 10.60 (7.40-12.00) fL Neut % (Auto) 51.4 (48.0-80.0) % Lymph % (Auto) 38.2 (16.0-40.0) % [place] % (Auto) 7.7 (0.0-15.0) % Eos % (Auto) 2.4 (0.0-7.0) % Baso % (Auto) 0.3 (0.0-1.5) % Neut # (Auto) 3.2 (1.4-5.7) K/uL Lymph # (Auto) 2.4 (0.6-2.4) K/uL [place] # (Auto) 0.5 (0.0-0.8) K/uL Eos # (Auto) 0.2 (0.0-0.7) K/uL Baso # (Auto) 0.0 (0.0-0.1) K/uL Nucleated RBC % 0.0 /100WBC Nucleated RBCs # 0 K/uL Sodium (136-145) mmol/L Potassium (3.5-5.1) mmol/L Chloride (98-107) mmol/L Carbon Dioxide (21.0-32.0) mmol/L BUN (7.0-18.0) mg/dL Creatinine (0.6-1.0) mg/dL Est Cr Clr Drug Dosing mL/min Estimated GFR (MDRD) ml/min Glucose (74-106) mg/dL Calcium (8.5-10.1) mg/dL HCG, Quant 507.0 mIU/mL Urine Color YELLOW Urine Appearance SLT CLOUDY Urine pH 5.5 (5.0-8.0) Ur Specific [place] 1.025 (1.001-1.035) Urine Protein NEGATIVE (NEGATIVE) mg/dL Urine Glucose (UA) NEGATIVE (NEGATIVE) mg/dL Urine Ketones NEGATIVE (NEGATIVE) mg/dL Urine Occult Blood LARGE H (NEGATIVE) Urine Nitrite NEGATIVE (NEGATIVE) Urine Bilirubin NEGATIVE (NEGATIVE) Urine Urobilinogen 0.2 (<2.0) EU/dL Ur Leukocyte Esterase TRACE H (NEGATIVE) Urine RBC 0-2 (0-2/HPF) Urine WBC 4-6 (0-5/HPF) Ur Epithelial Cells MODERATE (NONE-FEW) Urine Bacteria FEW (NEGATIVE) Urine HCG, Qual (NEGATIVE) Gayatri species DNA (NEGATIVE) Gardnerella DNA Probe (NEGATIVE) Trichomonas DNA Probe (NEGATIVE) Blood Type 10/12/18 10/12/18 10/12/18 Range/Units 17:53 18:45 19:03 WBC (4.0-11.0) K/uL RBC (4.30-5.90) M/uL Hgb (12.0-16.0) g/dL Hct (36.0-46.0) % MCV (80.0-98.0) fL MCH (27.0-32.0) pg MCHC (31.0-37.0) g/dL RDW Std Deviation (28.0-62.0) fl RDW Coeff of Sonali (11.0-15.0) % Plt Count (150-400) K/uL MPV (7.40-12.00) fL Neut % (Auto) (48.0-80.0) % Lymph % (Auto) (16.0-40.0) % [place] % (Auto) (0.0-15.0) % Eos % (Auto) (0.0-7.0) % Baso % (Auto) (0.0-1.5) % Neut # (Auto) (1.4-5.7) K/uL Lymph # (Auto) (0.6-2.4) K/uL [place] # (Auto) (0.0-0.8) K/uL Eos # (Auto) (0.0-0.7) K/uL Baso # (Auto) (0.0-0.1) K/uL Nucleated RBC % /100WBC Nucleated RBCs # K/uL Sodium (136-145) mmol/L Potassium (3.5-5.1) mmol/L Chloride (98-107) mmol/L Carbon Dioxide (21.0-32.0) mmol/L BUN (7.0-18.0) mg/dL Creatinine (0.6-1.0) mg/dL Est Cr Clr Drug Dosing mL/min Estimated GFR (MDRD) ml/min Glucose (74-106) mg/dL Calcium (8.5-10.1) mg/dL HCG, Quant mIU/mL Urine Color Urine Appearance Urine pH (5.0-8.0) Ur Specific [place] (1.001-1.035) Urine Protein (NEGATIVE) mg/dL Urine Glucose (UA) (NEGATIVE) mg/dL Urine Ketones (NEGATIVE) mg/dL Urine Occult Blood (NEGATIVE) Urine Nitrite (NEGATIVE) Urine Bilirubin (NEGATIVE) Urine Urobilinogen (<2.0) EU/dL Ur Leukocyte Esterase (NEGATIVE) Urine RBC (0-2/HPF) Urine WBC (0-5/HPF) Ur Epithelial Cells (NONE-FEW) Urine Bacteria (NEGATIVE) Urine HCG, Qual POSITIVE (NEGATIVE) Gayatri species DNA NEGATIVE (NEGATIVE) Gardnerella DNA Probe POSITIVE H (NEGATIVE) Trichomonas DNA Probe NEGATIVE (NEGATIVE) Blood Type A POSITIVE 10/13/18 10/13/18 Range/Units 05:30 05:30 WBC 7.87 (4.0-11.0) K/uL RBC 4.40 (4.30-5.90) M/uL Hgb 13.6 (12.0-16.0) g/dL Hct 38.2 (36.0-46.0) % MCV 86.8 (80.0-98.0) fL MCH 30.9 (27.0-32.0) pg MCHC 35.6 (31.0-37.0) g/dL RDW Std Deviation 38.5 (28.0-62.0) fl RDW Coeff of Sonali 12 (11.0-15.0) % Plt Count 221 (150-400) K/uL MPV 10.70 (7.40-12.00) fL Neut % (Auto) 89.0 H (48.0-80.0) % Lymph % (Auto) 9.4 L (16.0-40.0) % [place] % (Auto) 1.5 (0.0-15.0) % Eos % (Auto) 0.0 (0.0-7.0) % Baso % (Auto) 0.1 (0.0-1.5) % Neut # (Auto) 7.0 H (1.4-5.7) K/uL Lymph # (Auto) 0.7 (0.6-2.4) K/uL [place] # (Auto) 0.1 (0.0-0.8) K/uL Eos # (Auto) 0.0 (0.0-0.7) K/uL Baso # (Auto) 0.0 (0.0-0.1) K/uL Nucleated RBC % 0.0 /100WBC Nucleated RBCs # 0 K/uL Sodium 137 (136-145) mmol/L Potassium 4.3 (3.5-5.1) mmol/L Chloride 104 (98-107) mmol/L Carbon Dioxide 24.1 (21.0-32.0) mmol/L BUN 14 (7.0-18.0) mg/dL Creatinine 0.9 (0.6-1.0) mg/dL Est Cr Clr Drug Dosing 66.25 mL/min Estimated GFR (MDRD) > 60.0 ml/min Glucose 118 H (74-106) mg/dL Calcium 8.0 L (8.5-10.1) mg/dL HCG, Quant mIU/mL Urine Color Urine Appearance Urine pH (5.0-8.0) Ur Specific [place] (1.001-1.035) Urine Protein (NEGATIVE) mg/dL Urine Glucose (UA) (NEGATIVE) mg/dL Urine Ketones (NEGATIVE) mg/dL Urine Occult Blood (NEGATIVE) Urine Nitrite (NEGATIVE) Urine Bilirubin (NEGATIVE) Urine Urobilinogen (<2.0) EU/dL Ur Leukocyte Esterase (NEGATIVE) Urine RBC (0-2/HPF) Urine WBC (0-5/HPF) Ur Epithelial Cells (NONE-FEW) Urine Bacteria (NEGATIVE) Urine HCG, Qual (NEGATIVE) Gayatri species DNA (NEGATIVE) Gardnerella DNA Probe (NEGATIVE) Trichomonas DNA Probe (NEGATIVE) Blood Type Med Orders - Current: Current Medications Albuterol (Proventil Neb Soln) 2.5 mg NEB Q6HRRT PRN PRN Reason: Wheezing Ketorolac Tromethamine (Toradol) 30 mg IVPUSH Q6H PRN PRN Reason: Pain (severe 7-10) Stop: 10/17/18 23:52 Labetalol HCl (Normodyne) 10 mg IVPUSH Q6H PRN PRN Reason: Hypertension Stop: 10/13/18 23:40 Morphine Sulfate (Morphine) 4 mg IVPUSH Q2H PRN PRN Reason: Pain (severe 7-10) Naloxone HCl (Narcan) 0.1 mg IVPUSH ONETIME PRN PRN Reason: Respiratory Depression Ondansetron HCl (Zofran) 8 mg IVPUSH ONETIME PRN PRN Reason: Nausea Ondansetron HCl (Zofran) 4 mg IVPUSH Q6H PRN PRN Reason: Nausea/Vomiting Oxycodone/Acetaminophen (Percocet 325-5 Mg) 1 tab PO Q4H PRN PRN Reason: Pain (moderate 4-6) Oxycodone/Acetaminophen (Percocet 325-5 Mg) 2 tab PO Q4H PRN PRN Reason: Pain (moderate 4-6) Promethazine HCl (Phenergan) 12.5 mg IM ONETIME PRN PRN Reason: Nausea Promethazine HCl (Phenergan) 25 mg IM Q6H PRN PRN Reason: Nausea/Vomiting Scopolamine (Transderm-Scop) 1.5 mg TRDERM Q72H PRN PRN Reason: Nausea Sodium Chloride (Saline Flush) 10 ml FLUSH ASDIRECTED PRN PRN Reason: Keep Vein Open Last Admin: 10/12/18 21:26 Dose: 10 ml Sodium Chloride (Saline Flush) 2.5 ml FLUSH ASDIRECTED PRN PRN Reason: Keep Vein Open Last Admin: 10/12/18 21:26 Dose: 2.5 ml Discontinued Medications Atropine Sulfate (Atropine 0.1 Mg/Ml) 0.4 mg IVPUSH Q5M PRN PRN Reason: Bradycardia Dexamethasone (Dexamethasone) Confirm Administered Dose 20 mg .ROUTE .STK-MED ONE Stop: 10/12/18 22:24 Fentanyl (Sublimaze) Confirm Administered Dose 250 mcg .ROUTE .STK-MED ONE Stop: 10/12/18 22:24 Fentanyl (Sublimaze) 50 mcg IVPUSH Q5M PRN PRN Reason: Pain (severe 7-10) Stop: 10/13/18 23:40 Hydralazine HCl (Apresoline) 5 mg IVPUSH ONETIME PRN PRN Reason: Hypertension Hydralazine HCl (Apresoline) 10 mg IVPUSH ONETIME PRN PRN Reason: Hypertension Hydromorphone HCl (Dilaudid) 0.25 mg IVPUSH Q10M PRN PRN Reason: Pain (severe 7-10) Stop: 10/13/18 23:40 Sodium Chloride (Normal Saline) 1,000 mls @ 150 mls/hr IV .Bolus ONE Stop: 10/13/18 04:04 Last Admin: 10/12/18 21:26 Dose: 150 mls/hr Ketorolac Tromethamine (Toradol) Confirm Administered Dose 30 mg .ROUTE .STK- MED ONE Stop: 10/12/18 22:24 Ketorolac Tromethamine (Toradol) 30 mg IVPUSH ONETIME ONE Stop: 10/12/18 23:53 Last Admin: 10/13/18 01:24 Dose: Not Given Lidocaine (Xylocaine-Mpf 2%) Confirm Administered Dose 5 ml .ROUTE .STK-MED ONE Stop: 10/12/18 22:24 Meperidine HCl (Demerol) 12.5 mg IVPUSH ONETIME PRN PRN Reason: Shivering Meperidine HCl (Demerol) 25 mg IV ONETIME PRN PRN Reason: Shivering Metoclopramide HCl (Reglan) 10 mg IVPUSH ONETIME PRN PRN Reason: Nausea Midazolam HCl (Versed 1 Mg/Ml) Confirm Administered Dose 2 mg .ROUTE .STK-MED ONE Stop: 10/12/18 22:24 Morphine Sulfate (Morphine) 4 mg IVPUSH Q10M PRN PRN Reason: Pain (severe 7-10) Stop: 10/13/18 23:40 Octyl Cyanoacrylate (Dermabond Advance) Confirm Administered Dose 1 applic .ROUTE .STK-MED ONE Stop: 10/12/18 23:50 Ondansetron HCl (Zofran) Confirm Administered Dose 8 mg .ROUTE .STK-MED ONE Stop: 10/12/18 22:24 Phenylephrine HCl (Phenylephrine In Ns 100 Mcg/Ml) Confirm Administered Dose 1 mg .ROUTE .STK-MED ONE Stop: 10/12/18 23:55 Propofol (Diprivan 20 Ml) Confirm Administered Dose 200 mg .ROUTE .STK-MED ONE Stop: 10/12/18 22:24 Rocuronium [place] (Zemuron) Confirm Administered Dose 100 mg .ROUTE .STK-MED ONE Stop: 10/12/18 22:26 Sugammadex Sodium (Bridion) Confirm Administered Dose 200 mg .ROUTE .STK-MED ONE Stop: 10/12/18 23:48 - Exam Wound/Incisions: Healing Well General: Alert, Oriented HEENT: Pupils Equal Neck: Supple Lungs: Clear to Auscultation, Normal Respiratory Effort Cardiovascular: Regular Rate, Regular Rhythm GI/Abdominal Exam: Normal Bowel Sounds, Soft, Non-Tender, No Organomegaly, No Distention, No Abnormal Bruit, No Mass, Pelvis Stable Extremities: Normal Inspection, Normal Range of Motion, Non-Tender, No Pedal Edema, Normal Capillary Refill Skin: Warm, Dry, Intact Neurological: No New Focal Deficit Psy/Mental Status: Alert, Normal Affect, Normal Mood - Problem List Review Problem List Initiated/Reviewed/Updated: Yes - My Orders Last 24 Hours: Active Orders 24 hr Category Date Time Status Patient Status [ADT] Routine ADT 10/12/18 23:52 Active Antiembolic Devices [RC] PER UNIT ROUTINE Care 10/12/18 23:53 Active Notify Provider Consults [RC] ASDIRECTED Care 10/12/18 21:09 Active Notify Provider Vital Signs [RC] ASDIRECTED Care 10/12/18 23:52 Active Oxygen Therapy [RC] ASDIRECTED Care 10/12/18 23:40 Active Oxygen Therapy [RC] ASDIRECTED Care 10/12/18 23:52 Active RT Incentive Spirometry [RC] Q2HWA Care 10/12/18 23:52 Active Up With Assistance [RC] PER UNIT ROUTINE Care 10/12/18 23:52 Active Up ad Yamila [RC] PER UNIT ROUTINE Care 10/12/18 23:52 Active Vital Signs [RC] Q4H Care 10/12/18 23:52 Active Consult to Physician [CONS] Stat Cons 10/12/18 21:08 Active CHLAMYDIA AND GONORRHEA BY TMA Stat Lab 10/12/18 19:03 Received CULTURE URINE [RM] Stat Lab 10/12/18 17:39 Received Acetaminophen/oxyCODONE [Percocet 325-5 MG] Med 10/12/18 23:52 Active 1 tab PO Q4H PRN Acetaminophen/oxyCODONE [Percocet 325-5 MG] Med 10/12/18 23:52 Active 2 tab PO Q4H PRN Albuterol [Proventil Neb Soln] Med 10/12/18 23:40 Active 2.5 mg NEB Q6HRRT PRN Ketorolac [Toradol] Med 10/12/18 23:52 Active 30 mg IVPUSH Q6H PRN Labetalol [Normodyne] Med 10/12/18 23:40 Active 10 mg IVPUSH Q6H PRN Morphine Med 10/12/18 23:52 Active 4 mg IVPUSH Q2H PRN Naloxone [Narcan] Med 10/12/18 23:40 Active 0.1 mg IVPUSH ONETIME PRN Ondansetron [Zofran] Med 10/12/18 23:52 Active 4 mg IVPUSH Q6H PRN Ondansetron [Zofran] Med 10/12/18 23:40 Active 8 mg IVPUSH ONETIME PRN Promethazine [Phenergan] Med 10/12/18 23:40 Active 12.5 mg IM ONETIME PRN Promethazine [Phenergan] Med 10/12/18 23:52 Active 25 mg IM Q6H PRN Scopolamine [Transderm-Scop] Med 10/12/18 23:40 Active 1.5 mg TRDERM Q72H PRN Sodium Chloride 0.9% [Saline Flush] Med 10/12/18 20:58 Active 10 ml FLUSH ASDIRECTED PRN Sodium Chloride 0.9% [Saline Flush] Med 10/12/18 20:58 Active 2.5 ml FLUSH ASDIRECTED PRN Peripheral IV Discontinue [OM.PC] Routine Oth 10/12/18 23:52 Ordered Saline Lock Insert [OM.PC] Stat Oth 10/12/18 20:58 Ordered Sequential Compression Device [OM.PC] Per Unit Routine Oth 10/12/18 23:52 Ordered Resuscitation Status Routine Resus Stat 10/12/18 23:52 Ordered Medication Orders Albuterol (Proventil Neb Soln) 2.5 mg NEB Q6HRRT PRN PRN Reason: Wheezing Ketorolac Tromethamine (Toradol) 30 mg IVPUSH Q6H PRN PRN Reason: Pain (severe 7-10) Stop: 10/17/18 23:52 Labetalol HCl (Normodyne) 10 mg IVPUSH Q6H PRN PRN Reason: Hypertension Stop: 10/13/18 23:40 Morphine Sulfate (Morphine) 4 mg IVPUSH Q2H PRN PRN Reason: Pain (severe 7-10) Naloxone HCl (Narcan) 0.1 mg IVPUSH ONETIME PRN PRN Reason: Respiratory Depression Ondansetron HCl (Zofran) 8 mg IVPUSH ONETIME PRN PRN Reason: Nausea Ondansetron HCl (Zofran) 4 mg IVPUSH Q6H PRN PRN Reason: Nausea/Vomiting Oxycodone/Acetaminophen (Percocet 325-5 Mg) 1 tab PO Q4H PRN PRN Reason: Pain (moderate 4-6) Oxycodone/Acetaminophen (Percocet 325-5 Mg) 2 tab PO Q4H PRN PRN Reason: Pain (moderate 4-6) Promethazine HCl (Phenergan) 12.5 mg IM ONETIME PRN PRN Reason: Nausea Promethazine HCl (Phenergan) 25 mg IM Q6H PRN PRN Reason: Nausea/Vomiting Scopolamine (Transderm-Scop) 1.5 mg TRDERM Q72H PRN PRN Reason: Nausea Sodium Chloride (Saline Flush) 10 ml FLUSH ASDIRECTED PRN PRN Reason: Keep Vein Open Last Admin: 10/12/18 21:26 Dose: 10 ml Sodium Chloride (Saline Flush) 2.5 ml FLUSH ASDIRECTED PRN PRN Reason: Keep Vein Open Last Admin: 10/12/18 21:26 Dose: 2.5 ml - Assessment Assessment (Free Text/Narrative):: Status post diagnostic laparoscopy ND she is doing well she have no symptom and no complain she is on regular diet she is voiding without any problem - Plan Plan (Free Text/Narrative):: She will be sent home postoperative instruction is given and she is to come to the office in one week
== END 2018-10-13 11:30 | disposition home or self-care (01) ==
LOC: MW.ED 17:10 → MW.SDS 21:47 → MW.MS 22:40 → MW.SDS 10-13 11:30
PROVIDERS: ATTEND Obstetrics & Gynecology
DX: O03.4 Incomplete spontaneous abortion without complication (principal); J44.9 Chronic obstructive pulmonary disease, unspecified; F41.9 Anxiety disorder, unspecified; Z79.899 Other long term (current) drug therapy
CPT/HCPCS: 36415; 49320; 59812; 76801; 80048; 81001; 81025; 84702; 85025; 86900; 86901; 87086; 87480; 87491; 87510; 87591; 87660; 88305; 96360; 96361; 99285; A9270; J1100; J1885; J2001; J2250; J2370; J2405; J2704; J3010; J3490; J7040; 00840; 99283

== ENCOUNTER 2019-05-15 10:21 | Observation (INO) | payer BC ==
[2019-05-15] MEDS ORDERED: Lactated Ringers 1,000 ML IV ONE (12:37)
[2019-05-15] MEDS ORDERED: NIFEdipine 30 MG Tab.ER PO ONE (12:45)
== END 2019-05-15 14:18 | disposition home or self-care (01) ==
LOC: MW.OB 10:21
PROVIDERS: ADMIT Obstetrics & Gynecology; ATTEND Obstetrics & Gynecology
DX: O47.03 False labor before 37 completed weeks of gestation, third trimester (principal); Z3A.34 34 weeks gestation of pregnancy
CPT/HCPCS: 59025; A9270; J7120

== ENCOUNTER 2019-06-08 03:19 | Inpatient (IN) | payer BC ==
[2019-06-08] MEDS ORDERED: Sodium Chloride 0.9% 10 ML Syringe FLUSH PRN (03:47)
[2019-06-08] MEDS ORDERED: Sodium Chloride 0.9% 2.5 ML Syringe FLUSH PRN (03:47)
[2019-06-08] MEDS ORDERED: Sodium Chloride 0.9% 10 ML SDV IV PRN (03:47)
[2019-06-08] MEDS ORDERED: hydrOXYzine Pamoate 25 MG Cap PO ONE (03:50)
[2019-06-08] MEDS: Lactated Ringers 1,000 ML IV SCH ×2 (04:22→05:29)
[2019-06-08] MEDS ORDERED: Butorphanol 1 MG/ML SDV IVPUSH PRN (05:20)
[2019-06-08] MEDS ORDERED: Oxytocin/0.9 % Sodium Chloride 30 UNIT/500 ML BAG IV SCH (06:30)
[2019-06-08] MEDS ORDERED: Citric Acid/Sodium Citrate Solution 30 ML Cup PO ONE (06:30)
[2019-06-08] MEDS ORDERED: Ondansetron 4 MG/2 ML SDV ONE ×2 (07:12→08:04)
[2019-06-08] MEDS ORDERED: fentaNYL 100 MCG/2 ML SDV ONE (07:12)
[2019-06-08] MEDS ORDERED: Propofol 200 MG/20 ML SDV ONE (07:12)
[2019-06-08] MEDS ORDERED: Oxytocin 10 Units/1 ML SDV ONE (07:17)
[2019-06-08] MEDS ORDERED: Phenylephrine/Normal Saline 100 MCG/ML 10 ML Syringe ONE (07:17)
[2019-06-08] MEDS ORDERED: ePHEDrine 50 MG/ML SDV ONE (07:17)
[2019-06-08] MEDS ORDERED: Morphine PF 10 MG/10 ML SDV ONE (07:18)
[2019-06-08] MEDS ORDERED: ceFAZolin 2 GM in Premix Bag 1 BAG IV ONE (07:30)
--- NOTE | 2019-06-08 07:36 | PCM.PREANE ---
Preanesthetic Assessment - Anesthesia/Transfusion/Family Hx Anesthesia History: Prior Anesthesia Without Reaction Family History of Anesthesia Reaction: No Transfusion History: No Prior Transfusion(s) - Review of Systems General: No Symptoms Pulmonary: No Symptoms Cardiovascular: No Symptoms Gastrointestinal: No Symptoms Neurological: No Symptoms Other: Reports: None - Physical Assessment NPO Status Date: 06/08/19 NPO Status Time: 01:00 Vital Signs: 135/83 88 18 Height: 1.5 m Weight: 58.967 kg ASA Class: 2 Mental Status: Alert & Oriented x3 Airway Class: Mallampati = 2 Dentition: Reports: Normal Dentition Thyro-Mental Finger Breadths: 3 Mouth Opening Finger Breadths: 3 ROM/Head Extension: Full Lungs: Clear to Auscultation, Other (History of COPD. Etiology unknown.) Cardiovascular: Regular Rate - Lab Values: Laboratory Last Values WBC 4.77 K/uL (4.0-11.0) 06/08/19 04:20 RBC 4.37 M/uL (4.30-5.90) 06/08/19 04:20 Hgb 11.4 g/dL (12.0-16.0) L 06/08/19 04:20 Hct 34.5 % (36.0-46.0) L 06/08/19 04:20 MCV 78.9 fL (80.0-98.0) L 06/08/19 04:20 MCH 26.1 pg (27.0-32.0) L 06/08/19 04:20 MCHC 33.0 g/dL (31.0-37.0) 06/08/19 04:20 RDW Std Deviation 40.0 fl (28.0-62.0) 06/08/19 04:20 RDW Coeff of Sonali 14 % (11.0-15.0) 06/08/19 04:20 Plt Count 187 K/uL (150-400) 06/08/19 04:20 MPV 11.40 fL (7.40-12.00) 06/08/19 04:20 Blood Type A POSITIVE 06/08/19 04:20 Antibody Screen NEGATIVE 06/08/19 04:20 - Allergies Allergies/Adverse Reactions: Allergies Allergy/AdvReac Type Severity Reaction Status Date / Time No Known Allergies Allergy Verified 10/13/18 05:20 - Blood Blood Available: No - Acknowledgements Anesthesia Type Planned: Spinal Pt an Appropriate Candidate for the Planned Anesthesia: Yes Alternatives and Risks of Anesthesia Discussed w Pt/Guardian: Yes Pt/Guardian Understands and Agrees with Anesthesia Plan: Yes Additional Comments: Section #3. Discussed. ? answered. Accepts. Wishes to proceed. PreAnesthesia Questionnaire Respiratory History: Reports: COPD Other Respiratory History: pneumonia Gastrointestinal History: Reports: None Genitourinary History: Reports: None REFUSE DRIVER History: Reports: Ectopic , , Other (See Below) Other OB/BYN History: originally with twins this , one was etopic and non-viable. Psychiatric History: Reports: Anxiety Dermatologic History: Reports: None - Infectious Disease History Infectious Disease History: Reports: Chicken Pox - Past Surgical History Respiratory Surgical History: Reports: None GI Surgical History: Reports: Other (See Below) Other GI Surgeries/Procedures: tummy tuck Female Surgical History: Reports: Section Dermatological Surgical History: Reports: Plastic Surgical Reconstruction/Repair - SUBSTANCE USE Smoking Status *Q: Never Smoker Second Hand Smoke Exposure: Yes Recreational Drug Use History: No - HOME MEDS Home Medications: Home Meds [id number]/Iron Fumarate/FA/DSS [ 19 Tablet] 1 tab PO DAILY 10/12/18 [ History] - CURRENT (IN HOUSE) MEDS Current Meds: Current Medications Butorphanol Tartrate (Stadol) 1 mg IVPUSH Q1H PRN PRN Reason: Pain Last Admin: 06/08/19 05:31 Dose: 1 mg Lactated Ringer's (Ringers, Lactated) 1,000 mls @ 500 mls/hr IV BOLUS YUAN Last Admin: 06/08/19 05:29 Dose: 500 mls/hr Oxytocin/Sodium Chloride (Oxytocin 30 Unit/500 Ml-Ns) 30 unit in 500 mls @ 250 mls/hr IV TITRATE YUAN Cefazolin Sodium/Dextrose 2 gm (/ Premix) 50 mls @ 100 mls/hr IV ONETIME ONE Stop: 06/08/19 07:59 Sodium Chloride (Saline Flush) 10 ml FLUSH ASDIRECTED PRN PRN Reason: Keep Vein Open Last Admin: 06/08/19 04:31 Dose: 10 ml Sodium Chloride (Saline Flush) 2.5 ml FLUSH ASDIRECTED PRN PRN Reason: Keep Vein Open Sodium Chloride (Normal Saline) 10 ml IV ASDIRECTED PRN PRN Reason: IV Use Discontinued Medications Citric Acid/Sodium Citrate (Bicitra Solution) 30 ml PO ONETIME ONE Stop: 06/08/19 06:31 Ephedrine Sulfate (Ephedrine Sulfate) Confirm Administered Dose 50 mg .ROUTE .STK-MED ONE Stop: 06/08/19 07:18 Fentanyl (Sublimaze) Confirm Administered Dose 100 mcg .ROUTE .STK-MED ONE Stop: 06/08/19 07:13 Hydroxyzine Pamoate (Vistaril) 25 mg PO ONETIME ONE Stop: 06/08/19 03:51 Last Admin: 06/08/19 04:38 Dose: 25 mg Morphine Sulfate (Duramorph Pf) Confirm Administered Dose 10 mg .ROUTE .STK-MED ONE Stop: 06/08/19 07:19 Ondansetron HCl (Zofran) Confirm Administered Dose 4 mg .ROUTE .STK-MED ONE Stop: 06/08/19 07:13 Oxytocin (Pitocin) Confirm Administered Dose 20 unit .ROUTE .STK-MED ONE Stop: 06/08/19 07:18 Phenylephrine HCl (Phenylephrine In Ns 100 Mcg/Ml) Confirm Administered Dose 1 mg .ROUTE .STK-MED ONE Stop: 06/08/19 07:18 Propofol (Diprivan 20 Ml) Confirm Administered Dose 200 mg .ROUTE .STK-MED ONE Stop: 06/08/19 07:13
[2019-06-08] MEDS ORDERED: Octyl 2-Cyanoacrylate 1 Tube ONE (07:48)
--- NOTE | 2019-06-08 07:49 | PCM.LDHP ---
L&D History of Present Illness - General Date of Service: 06/08/19 Admit Problem/Dx: Patient Status Order with Admit Dx/Problem 06/08/19 03:29 Patient Status [ADT] Routine 06/08/19 03:47 Patient Status [ADT] Routine 06/08/19 06:30 Patient Status [ADT] Urgent Admission Diagnosis/Problem Admission Diagnosis/Problem Source of Information: Patient History Limitations: Reports: No Limitations - History of Present Illness Pain Score: 10 Improves with: Reports: None Worsens with: Reports: None Associated Symptoms: Reports: N - Related Data Allergies/Adverse Reactions: Allergies Allergy/AdvReac Type Severity Reaction Status Date / Time No Known Allergies Allergy Verified 10/13/18 05:20 Home Medications: Home Meds [id number]/Iron Fumarate/FA/DSS [ 19 Tablet] 1 tab PO DAILY 10/12/18 [ History] Past Medical History Respiratory History: Reports: COPD Other Respiratory History: pneumonia Gastrointestinal History: Reports: None Genitourinary History: Reports: None TOLL PATROLMAN History: Reports: Ectopic , , Other (See Below) Other OB/BYN History: originally with twins this , one was etopic and non-viable. Psychiatric History: Reports: Anxiety Dermatologic History: Reports: None - Infectious Disease History Infectious Disease History: Reports: Chicken Pox - Past Surgical History Respiratory Surgical History: Reports: None GI Surgical History: Reports: Other (See Below) Other GI Surgeries/Procedures: tummy tuck Female Surgical History: Reports: Section Dermatological Surgical History: Reports: Plastic Surgical Reconstruction/Repair Social & Family History - Family History Family Medical History: Noncontributory - Tobacco Use Smoking Status *Q: Never Smoker Second Hand Smoke Exposure: Yes - Caffeine Use Caffeine Use: Reports: Soda - Recreational Drug Use Recreational Drug Use: No H&P Review of Systems - Review of Systems: Review Of Systems: See Below General: Reports: No Symptoms HEENT: Reports: No Symptoms Pulmonary: Reports: No Symptoms Cardiovascular: Reports: No Symptoms Gastrointestinal: Reports: No Symptoms Genitourinary: Reports: No Symptoms Musculoskeletal: Reports: No Symptoms Skin: Reports: No Symptoms Psychiatric: Reports: No Symptoms Neurological: Reports: No Symptoms Hematologic/Lymphatic: Reports: No Symptoms Immunologic: Reports: No Symptoms L&D Exam - Exam Exam: See Below - Vital Signs Weight: 58.967 kg - OB Specific Contraction Intensity: Moderate Movement: Active Heart Tones: Present Presentation: Vertex - Exam General: Alert, Oriented HEENT: PERRLA, Conjunctiva Clear, EACs Clear, EOMI, Hearing Intact, Mucosa Moist & [place], Nares Patent, Normal Nasal Septum, Posterior Pharynx Clear, TMs Clear Neck: Supple, Trachea Midline Lungs: Clear to Auscultation, Normal Respiratory Effort Cardiovascular: Regular Rate, Regular Rhythm GI/Abdominal Exam: Normal Bowel Sounds, Soft, Non-Tender, No Organomegaly, No Distention, No Abnormal Bruit, No Mass, Pelvis Stable Rectal Exam: Normal Exam, Normal Rectal Tone Genitourinary: Normal external exam, Normal bimanual exam, Normal speculum exam Back Exam: Normal Inspection, Full Range of Motion Extremities: Normal Inspection, Normal Range of Motion, Non-Tender, No Pedal Edema, Normal Capillary Refill Skin: Warm, Dry, Intact Neurological: Cranial Nerves Intact, Reflexes Equal Bilateral Psychiatric: Alert, Normal Affect, Normal Mood - Patient Data Lab Results Last 24 hrs: Laboratory Results - last 24 hr 06/08/19 06/08/19 Range/Units 04:20 04:20 WBC 4.77 (4.0-11.0) K/uL RBC 4.37 (4.30-5.90) M/uL Hgb 11.4 L (12.0-16.0) g/dL Hct 34.5 L (36.0-46.0) % MCV 78.9 L (80.0-98.0) fL MCH 26.1 L (27.0-32.0) pg MCHC 33.0 (31.0-37.0) g/dL RDW Std Deviation 40.0 (28.0-62.0) fl RDW Coeff of Sonali 14 (11.0-15.0) % Plt Count 187 (150-400) K/uL MPV 11.40 (7.40-12.00) fL Blood Type A POSITIVE Antibody Screen NEGATIVE Result Diagrams: 06/08/19 04:20 Problem List Initiated/Reviewed/Updated: Yes Orders Last 24hrs: Active Orders 24 hr Category Date Time Status Patient Status [ADT] Urgent ADT 06/08/19 06:30 Active Non Stress Test [RC] PER UNIT ROUTINE Care 06/08/19 03:29 Active Notify Provider Vital Signs [RC] PRN Care 06/08/19 10:00 Active Procedure Site Prep Instruct [RC] ASDIRECTED Care 06/08/19 03:47 Active Up ad Yamila [RC] ASDIRECTED Care 06/08/19 03:29 Active Vaginal Exam [RC] Click to Edit Care 06/08/19 03:29 Active Verify Patient Consent Obtain [RC] ASDIRECTED Care 06/08/19 06:30 Active Vital Signs [RC] PER UNIT ROUTINE Care 06/08/19 03:29 Active RAPID PLASMA REAGIN, QUANT [REF] Routine Lab 06/08/19 04:20 Received Butorphanol [Stadol] Med 06/08/19 05:20 Active 1 mg IVPUSH Q1H PRN Lactated Ringers [Ringers, Lactated] 1,000 ml Med 06/08/19 04:00 Active IV BOLUS Oxytocin/0.9 % Sodium Chloride [Oxytocin 30 Unit/500 ML Med 06/08/19 06:30 Active -NS] 30 unit in 500 ml IV TITRATE Sodium Chloride 0.9% [Normal Saline] Med 06/08/19 03:47 Active 10 ml IV ASDIRECTED PRN Sodium Chloride 0.9% [Saline Flush] Med 06/08/19 03:47 Active 10 ml FLUSH ASDIRECTED PRN Sodium Chloride 0.9% [Saline Flush] Med 06/08/19 03:47 Active 2.5 ml FLUSH ASDIRECTED PRN ceFAZolin [Ancef] 2 gm Med 06/08/19 07:30 Active Premix Bag 1 bag IV ONETIME Peripheral IV Insertion Adult [OM.PC] Routine Oth 06/08/19 03:47 Ordered Schedule Procedure [COMM] Per Unit Routine Oth 06/08/19 06:30 Ordered Resuscitation Status Routine Resus Stat 06/08/19 03:29 Ordered Medication Orders Butorphanol Tartrate (Stadol) 1 mg IVPUSH Q1H PRN PRN Reason: Pain Last Admin: 06/08/19 05:31 Dose: 1 mg Lactated Ringer's (Ringers, Lactated) 1,000 mls @ 500 mls/hr IV BOLUS YUAN Last Admin: 06/08/19 05:29 Dose: 500 mls/hr Infusion: 06/08/19 05:29 Dose: 500 mls/hr Admin: 06/08/19 04:22 Dose: 500 mls/hr Oxytocin/Sodium Chloride (Oxytocin 30 Unit/500 Ml-Ns) 30 unit in 500 mls @ 250 mls/hr IV TITRATE YUAN Cefazolin Sodium/Dextrose 2 gm (/ Premix) 50 mls @ 100 mls/hr IV ONETIME ONE Stop: 06/08/19 07:59 Sodium Chloride (Saline Flush) 10 ml FLUSH ASDIRECTED PRN PRN Reason: Keep Vein Open Last Admin: 06/08/19 04:31 Dose: 10 ml Sodium Chloride (Saline Flush) 2.5 ml FLUSH ASDIRECTED PRN PRN Reason: Keep Vein Open Sodium Chloride (Normal Saline) 10 ml IV ASDIRECTED PRN PRN Reason: IV Use Assessment/Plan Comment:: IUP 38 wks previous C/Section in labor.
[2019-06-08] MEDS ORDERED: ceFAZolin 1 GM Vial ONE (07:59)
[2019-06-08] MEDS ORDERED: Sodium Chloride 0.9% 20 ML ONE (07:59)
[2019-06-08] MEDS ORDERED: Nalbuphine 10 MG/1 ML Vial IVPUSH PRN (08:22)
[2019-06-08] MEDS ORDERED: fentaNYL 100 MCG/2 ML SDV IVPUSH PRN (08:22)
[2019-06-08] MEDS ORDERED: Acetaminophen/oxyCODONE 325-5 MG Tab PO PRN ×2 (08:22→08:27)
[2019-06-08] MEDS ORDERED: Methylergonovine 0.2 MG/1 ML Amp IM PRN (08:27)
[2019-06-08] MEDS ORDERED: Ondansetron 4 MG/2 ML SDV IVPUSH PRN (08:27)
[2019-06-08] MEDS ORDERED: Oxytocin 10 Units/1 ML SDV IM PRN (08:27)
[2019-06-08] MEDS ORDERED: Misoprostol 200 MCG Tab RECTAL PRN (08:27)
[2019-06-08] MEDS ORDERED: Bisacodyl 10 MG Supp RECTAL PRN (08:27)
[2019-06-08] MEDS ORDERED: Lanolin 100% Cream 7 GM Tube TOP PRN (08:27)
[2019-06-08] MEDS ORDERED: Tranexamic Acid 1,000 MG in Sodium Chloride 0.9% 100 ML IV PRN (08:27)
[2019-06-08] MEDS ORDERED: diphenhydrAMINE 50 MG/ML SDV IVPUSH PRN (08:27)
[2019-06-08] MEDS ORDERED: Ibuprofen 800 MG Tab PO PRN (08:27)
[2019-06-08] MEDS ORDERED: Lactated Ringers 1,000 ML IV SCH (08:30)
--- NOTE | 2019-06-08 08:31 | PCM.OPNOTE ---
- General Post-Op/Procedure Note Date of Surgery/Procedure: 06/08/19 Operative Procedure(s): Repeat C/section. Pre Op Diagnosis: [id number] previous C/section. Post-Op Diagnosis: Same Anesthesia Technique: Spinal Primary Surgeon: Aleksandr Florez EBL in mLs: 600 Complications: None Condition: Good
[2019-06-08] MEDS: Ketorolac 30 MG/ML SDV IVPUSH SCH ×3 (09:22→20:57)
--- NOTE | 2019-06-08 12:27 | OR ---
SURGEON: Aleksandr Florez MD DATE OF PROCEDURE: PREOPERATIVE DIAGNOSES: Intrauterine at 38 weeks, previous section, in active labor. POSTOPERATIVE DIAGNOSES: Intrauterine at 38 weeks, previous section, in active labor. OPERATION PERFORMED: Repeat low transverse section. PRIMARY SURGEON: Aleksandr Florez MD. CHANNEL MANAGER: [facility]. ANESTHESIA: Spinal. Phong Queen and Dr. Radford. ESTIMATED BLOOD LOSS: 600 mL. COMPLICATIONS: None. FINDINGS: fetus, cried immediately. score reported to be 8 and 9. Paper Bag Machine Operator was in attendance of section. INDICATION FOR SURGERY: This patient is 29. She had previous section. She is 38 weeks. She was scheduled for elective repeat section next week, and she presented today in active labor. PROCEDURE IN DETAIL: The patient was brought to the OR, properly identified. After adequate level of spinal anesthesia with a [place] catheter in the bladder, a low transverse Pfannenstiel skin incision was done below her scar from her abdominoplasty. Daisy's fascia and rectus fascia were opened in direction of the incision. The two recti muscles were and peritoneal cavity was entered. Bladder flap was raised in the usual manner, pushing the bladder away from the lower uterine segment. Low transverse uterine incision was done, extended manually with hand. The fetus was in the occiput posterior position and delivered without any problem. Cried immediately, handed to the resuscitation team who was present at the time of the delivery for further resuscitation. Meconium- stained amniotic fluid was noticed. The placenta delivered spontaneous, complete, and intact and then repair of the lower uterine segment was done with 2-0 Vicryl interlocking in 2 layers, reperitonealization done with 3-0 Vicryl continuous, and then the peritoneal cavity was closed in layers. The peritoneum with 3-0 Vicryl and then the fascia with #1 PDS continuous interlocking. The Daisy's fascia was closed with 3-0 Vicryl continuous. The skin closed with 3-0 Vicryl in a subcuticular fashion. Instrument and sponge count was correct. The patient tolerated the procedure well, went to recovery room in stable general condition. BRIANNE / RUPAL /[id number]
--- NOTE | 2019-06-08 14:08 | PCM.POSTAN ---
POST ANESTHESIA ASSESSMENT - MENTAL STATUS Mental Status: Alert, Oriented - VITAL SIGNS Vital Signs: Last Vital Signs Temp 96.9 F 06/08/19 11:30 Pulse 108 H 06/08/19 13:00 Resp 14 06/08/19 13:00 BP 112/59 L 06/08/19 13:00 Pulse Ox 100 06/08/19 13:00 - RESPIRATORY Respiratory Status: Respiratory Rate WNL, Airway Patent, O2 Saturation Stable - CARDIOVASCULAR CV Status: Pulse Rate WNL, Blood Pressure Stable - GASTROINTESTINAL GI Status: No Symptoms - POST OP HYDRATION Hydration Status: Adequate & Stable
[2019-06-08] MEDS: Docusate Sodium 100 MG Cap PO SCH ×2 (15:40→20:58)
[2019-06-09] MEDS: Ketorolac 30 MG/ML SDV IVPUSH SCH ×2 (02:52→09:58)
--- NOTE | 2019-06-09 07:17 | PCM48HPAN ---
Post Anesthesia Note - EVALUATION WITHIN 48HRS OF ANESTHETIC Vital Signs in Normal Range: Yes Patient Participated in Evaluation: Yes Respiratory Function Stable: Yes Airway Patent: Yes Cardiovascular Function Stable: Yes Hydration Status Stable: Yes Pain Control Satisfactory: Yes Nausea and Vomiting Control Satisfactory: Yes Mental Status Recovered: Yes Vital Signs: Last Vital Signs Temp 36.9 C 06/09/19 06:00 Pulse 98 06/09/19 06:00 Resp 16 06/09/19 07:00 BP 106/66 06/09/19 03:00 Pulse Ox 100 06/09/19 07:00
--- NOTE | 2019-06-09 08:21 | PCM.PNPP ---
- General Info Date of Service: 06/09/19 Functional Status: Reports: Pain Controlled - Review of Systems General: Reports: No Symptoms HEENT: Reports: No Symptoms Pulmonary: Reports: No Symptoms Cardiovascular: Reports: No Symptoms Gastrointestinal: Reports: No Symptoms Genitourinary: Reports: No Symptoms Musculoskeletal: Reports: No Symptoms Skin: Reports: No Symptoms Neurological: Reports: No Symptoms Psychiatric: Reports: No Symptoms - General Info Date of Service: 06/09/19 - Patient Data Vital Signs - Most Recent: Last Vital Signs Temp 36.9 C 06/09/19 06:00 Pulse 98 06/09/19 06:00 Resp 16 06/09/19 07:00 BP 106/66 06/09/19 03:00 Pulse Ox 100 06/09/19 07:00 Weight - Most Recent: 58.967 kg I&O - Last 24 Hours: Intake & Output 06/08/19 06/09/19 06/09/19 22:59 06:59 14:59 Intake Total 800 Output Total 450 1380 Balance 350 -1380 Lab Results - Last 24 Hours: Laboratory Results - last 24 hr 06/09/19 Range/Units 05:15 Hgb 7.6 L (12.0-16.0) g/dL Hct 24.1 L (36.0-46.0) % Med Orders - Current: Current Medications Bisacodyl (Dulcolax) 10 mg RECTAL ONETIME PRN PRN Reason: Constipation Butorphanol Tartrate (Stadol) 1 mg IVPUSH Q1H PRN PRN Reason: Pain Last Admin: 06/08/19 05:31 Dose: 1 mg Diphenhydramine HCl (Benadryl) 25 mg IVPUSH Q6H PRN PRN Reason: Itching or Nausea Docusate Sodium (Colace) 100 mg PO BID [facility] Last Admin: 06/08/19 20:58 Dose: 100 mg Emollient Ointment (Lansinoh Hpa) 0 gm TOP ASDIRECTED PRN PRN Reason: Sore Nipples Fentanyl (Sublimaze) 50 mcg IVPUSH Q5M PRN PRN Reason: Pain (severe 7-10) Stop: 06/09/19 08:23 Lactated Ringer's (Ringers, Lactated) 1,000 mls @ 500 mls/hr IV BOLUS YUAN Last Admin: 06/08/19 05:29 Dose: 500 mls/hr Oxytocin/Sodium Chloride (Oxytocin 30 Unit/500 Ml-Ns) 30 unit in 500 mls @ 250 mls/hr IV TITRATE [facility] Tranexamic Acid 1,000 mg/ (Sodium Chloride) 110 mls @ 660 mls/hr IV ONETIME PRN PRN Reason: Bleeding Lactated Ringer's (Ringers, Lactated) 1,000 mls @ 125 mls/hr IV ASDIRECTED [facility] Last Admin: 06/08/19 09:56 Dose: 125 mls/hr Ibuprofen (Motrin) 800 mg PO Q8H PRN PRN Reason: mild pain or fever Ketorolac Tromethamine (Toradol) 30 mg IVPUSH Q6H [facility] Stop: 06/09/19 08:31 Last Admin: 06/09/19 02:52 Dose: 30 mg Methylergonovine Maleate (Methergine) 0.2 mg IM ONETIME PRN PRN Reason: Excessive Vaginal Bleeding Misoprostol (Cytotec) 1,000 mcg RECTAL ONETIME PRN PRN Reason: excessive bleeding Nalbuphine HCl (Nubain) 2.5 mg IVPUSH Q3H PRN PRN Reason: Pruritis Stop: 06/09/19 08:23 Ondansetron HCl (Zofran) 4 mg IVPUSH Q4H PRN PRN Reason: Nausea/Vomiting Last Admin: 06/08/19 07:30 Dose: 4 mg Oxycodone/Acetaminophen (Percocet 325-5 Mg) 1 tab PO ONETIME PRN PRN Reason: Pain (moderate 4-6) Oxycodone/Acetaminophen (Percocet 325-5 Mg) 1 tab PO Q4H PRN PRN Reason: Pain (moderate 4-6) Oxycodone/Acetaminophen (Percocet 325-5 Mg) 2 tab PO Q4H PRN PRN Reason: Pain (moderate 4-6) Oxytocin (Pitocin) 10 unit IM ASDIRECTED PRN PRN Reason: Excessive Vaginal Bleeding Sodium Chloride (Saline Flush) 10 ml FLUSH ASDIRECTED PRN PRN Reason: Keep Vein Open Last Admin: 06/08/19 04:31 Dose: 10 ml Sodium Chloride (Saline Flush) 2.5 ml FLUSH ASDIRECTED PRN PRN Reason: Keep Vein Open Sodium Chloride (Normal Saline) 10 ml IV ASDIRECTED PRN PRN Reason: IV Use Discontinued Medications Cefazolin Sodium (Ancef) Confirm Administered Dose 1 gm .ROUTE .STK-MED ONE Stop: 06/08/19 08:00 Citric Acid/Sodium Citrate (Bicitra Solution) 30 ml PO ONETIME ONE Stop: 06/08/19 06:31 Ephedrine Sulfate (Ephedrine Sulfate) Confirm Administered Dose 50 mg .ROUTE .STK-MED ONE Stop: 06/08/19 07:18 Fentanyl (Sublimaze) Confirm Administered Dose 100 mcg .ROUTE .STK-MED ONE Stop: 06/08/19 07:13 Hydroxyzine Pamoate (Vistaril) 25 mg PO ONETIME ONE Stop: 06/08/19 03:51 Last Admin: 06/08/19 04:38 Dose: 25 mg Cefazolin Sodium/Dextrose 2 gm (/ Premix) 50 mls @ 100 mls/hr IV ONETIME ONE Stop: 06/08/19 07:59 Sodium Chloride (Normal Saline) Confirm Administered Dose 20 mls @ as directed .ROUTE .ST-MED ONE Stop: 06/08/19 08:00 Acetaminophen (Ofirmev) Confirm Administered Dose 100 mls @ as directed .ROUTE .STK-MED ONE Stop: 06/08/19 08:28 Morphine Sulfate (Duramorph Pf) Confirm Administered Dose 10 mg .ROUTE .STK-MED ONE Stop: 06/08/19 07:19 Octyl Cyanoacrylate (Dermabond Advance) Confirm Administered Dose 1 applic .ROUTE .STK-MED ONE Stop: 06/08/19 07:49 Ondansetron HCl (Zofran) Confirm Administered Dose 4 mg .ROUTE .STK-MED ONE Stop: 06/08/19 07:13 Ondansetron HCl (Zofran) Confirm Administered Dose 4 mg .ROUTE .STK-MED ONE Stop: 06/08/19 08:05 Oxytocin (Pitocin) Confirm Administered Dose 20 unit .ROUTE .STK-MED ONE Stop: 06/08/19 07:18 Phenylephrine HCl (Phenylephrine In Ns 100 Mcg/Ml) Confirm Administered Dose 1 mg .ROUTE .STK-MED ONE Stop: 06/08/19 07:18 Propofol (Diprivan 20 Ml) Confirm Administered Dose 200 mg .ROUTE .STK-MED ONE Stop: 06/08/19 07:13 - Interaction Disposition, : [place] in Room with Family Infant Interaction: Holding Infant Feeding: Attempted ; Nursed Fair/Poor Support Person: - Recovery Exam Fundal Tone: Firm Fundal Level: 2 Fingerbreadths Above Umbilicus Fundal Placement: Midline Lochia Amount: Scant Lochia Color: Rubra/Red Perineum Description: Intact, Minimal Bruising/Swelling Episiotomy/Laceration: None Bladder Status: Indwelling Catheter in Place Urinary Elimination: Indwelling Catheter - Exam General: Alert, Oriented HEENT: Pupils Equal Neck: Supple Lungs: Clear to Auscultation, Normal Respiratory Effort Cardiovascular: Regular Rate, Regular Rhythm GI/Abdominal Exam: Normal Bowel Sounds, Soft, Non-Tender, No Organomegaly, No Distention, No Abnormal Bruit, No Mass, Pelvis Stable Extremities: Normal Inspection, Normal Range of Motion, Non-Tender, No Pedal Edema, Normal Capillary Refill Skin: Warm, Dry, Intact Wound/Incisions: Healing Well Neurological: No New Focal Deficit Psy/Mental Status: Alert, Normal Affect, Normal Mood - Problem List Review Problem List Initiated/Reviewed/Updated: Yes - My Orders Last 24 Hours: My Active Orders 06/08/19 08:27 Acetaminophen/oxyCODONE [Percocet 325-5 MG] 1 tab PO Q4H PRN Acetaminophen/oxyCODONE [Percocet 325-5 MG] 2 tab PO Q4H PRN Bisacodyl [Dulcolax] 10 mg RECTAL ONETIME PRN Ibuprofen [Motrin] 800 mg PO Q8H PRN Lanolin [Lansinoh HPA] See Dose Instructions TOP ASDIRECTED PRN Methylergonovine [Methergine] 0.2 mg IM ONETIME PRN Ondansetron [Zofran] 4 mg IVPUSH Q4H PRN Oxytocin [Pitocin] 10 unit IM ASDIRECTED PRN Tranexamic Acid [Cyklokapron] 1,000 mg Sodium Chloride 0.9% [Normal Saline] 100 ml IV ONETIME diphenhydrAMINE [Benadryl] 25 mg IVPUSH Q6H PRN miSOPROStoL [Cytotec] 1,000 mcg RECTAL ONETIME PRN 06/08/19 08:28 Patient Status [ADT] Routine Ambulate [RC] PER UNIT ROUTINE Antiembolic Devices [RC] PER UNIT ROUTINE Communication Order [RC] PER UNIT ROUTINE Communication Order [RC] PER UNIT ROUTINE Communication Order [RC] Per Unit Routine May Shower [RC] ASDIRECTED RT Incentive Spirometry [RC] Q2HWA Assess Lochia [WOMSER] Per Unit Routine Assess Uterine Involution [WOMSER] Per Unit Routine Breast Pump [WOMSER] Per Unit Routine Peripheral IV Discontinue [OM.PC] Routine Sequential Compression Device [OM.PC] Per Unit Routine 06/08/19 08:30 Ketorolac [Toradol] 30 mg IVPUSH Q6H Lactated Ringers [Ringers, Lactated] 1,000 ml IV ASDIRECTED 06/08/19 09:00 Docusate Sodium [Colace] 100 mg PO BID 06/08/19 10:00 Notify Provider Vital Signs [RC] PRN 06/08/19 Lunch Regular Diet [DIET] - Assessment Assessment:: Status post repeat section postoperative day #1 the patient is doing well ambulatory without any problem incision is clean dry no sign of infection the patient ambulatory on regular diet and voiding without any problem and passing gas. - Plan Plan:: IUP 38 wks previous C/Section in labor.
[2019-06-09] MEDS: Docusate Sodium 100 MG Cap PO SCH (10:34)
[2019-06-09] MEDS: Acetaminophen/oxyCODONE 325-5 MG Tab PO PRN ×2 (18:19→23:58)
[2019-06-10] MEDS: Docusate Sodium 100 MG Cap PO SCH ×2 (02:48→09:31)
--- NOTE | 2019-06-10 08:56 | PCM.DCSUM1 ---
Discharge Summary - Hospital Course Diagnosis: Stroke: No - Discharge Data Discharge Date: 06/10/19 Discharge Disposition: Home, Self-Care 01 Condition: Good - Referral to Home Health Primary Care Physician: PCP None - Patient Summary/Data Operative Procedure(s) Performed: Repeat C/section. - Patient Instructions Diet: Usual Diet as Tolerated Activity: As Tolerated Driving: Do Not Drive Showering/Bathing: May Shower Wound/Incision Care: Keep Operative Site/Wound Site Clean and Dry Notify Provider of: Fever, Increased Pain, Nausea and/or Vomiting - Discharge Plan Home Medications: Home Meds [id number]/Iron Fumarate/FA/DSS [ 19 Tablet] 1 tab PO DAILY 10/12/18 [ History] Referrals: [facility] [Outside] Aleksandr Florez MD [Physician] - 06/16/19 10:45 am (Dr. Ch nurse will tell her when her 6 week appointment will be at the 1 week post-op appointment) - Discharge Summary/Plan Comment DC Time >30 min.: Yes - General Info Date of Service: 06/10/19 Functional Status: Reports: Pain Controlled - Review of Systems General: Reports: No Symptoms HEENT: Reports: No Symptoms Pulmonary: Reports: No Symptoms Cardiovascular: Reports: No Symptoms Gastrointestinal: Reports: No Symptoms Genitourinary: Reports: No Symptoms Musculoskeletal: Reports: No Symptoms Skin: Reports: No Symptoms Neurological: Reports: No Symptoms Psychiatric: Reports: No Symptoms - Patient Data Vitals - Most Recent: Last Vital Signs Temp 36.6 C 06/10/19 04:45 Pulse 94 06/10/19 04:45 Resp 17 06/10/19 04:45 BP 115/61 06/10/19 04:45 Pulse Ox 97 06/10/19 04:45 Weight - Most Recent: 58.967 kg Med Orders - Current: Current Medications Bisacodyl (Dulcolax) 10 mg RECTAL ONETIME PRN PRN Reason: Constipation Butorphanol Tartrate (Stadol) 1 mg IVPUSH Q1H PRN PRN Reason: Pain Last Admin: 06/08/19 05:31 Dose: 1 mg Diphenhydramine HCl (Benadryl) 25 mg IVPUSH Q6H PRN PRN Reason: Itching or Nausea Docusate Sodium (Colace) 100 mg PO BID YUAN Last Admin: 06/10/19 02:48 Dose: Not Given Emollient Ointment (Lansinoh Hpa) 0 gm TOP ASDIRECTED PRN PRN Reason: Sore Nipples Lactated Ringer's (Ringers, Lactated) 1,000 mls @ 500 mls/hr IV BOLUS [facility] Last Admin: 06/08/19 05:29 Dose: 500 mls/hr Oxytocin/Sodium Chloride (Oxytocin 30 Unit/500 Ml-Ns) 30 unit in 500 mls @ 250 mls/hr IV TITRATE [facility] Tranexamic Acid 1,000 mg/ (Sodium Chloride) 110 mls @ 660 mls/hr IV ONETIME PRN PRN Reason: Bleeding Lactated Ringer's (Ringers, Lactated) 1,000 mls @ 125 mls/hr IV ASDIRECTED [facility] Last Admin: 06/08/19 09:56 Dose: 125 mls/hr Ibuprofen (Motrin) 800 mg PO Q8H PRN PRN Reason: mild pain or fever Methylergonovine Maleate (Methergine) 0.2 mg IM ONETIME PRN PRN Reason: Excessive Vaginal Bleeding Misoprostol (Cytotec) 1,000 mcg RECTAL ONETIME PRN PRN Reason: excessive bleeding Ondansetron HCl (Zofran) 4 mg IVPUSH Q4H PRN PRN Reason: Nausea/Vomiting Last Admin: 06/08/19 07:30 Dose: 4 mg Oxycodone/Acetaminophen (Percocet 325-5 Mg) 1 tab PO ONETIME PRN PRN Reason: Pain (moderate 4-6) Oxycodone/Acetaminophen (Percocet 325-5 Mg) 1 tab PO Q4H PRN PRN Reason: Pain (moderate 4-6) Last Admin: 06/09/19 10:34 Dose: 1 tab Oxycodone/Acetaminophen (Percocet 325-5 Mg) 2 tab PO Q4H PRN PRN Reason: Pain (moderate 4-6) Last Admin: 06/09/19 23:58 Dose: 2 tab Oxytocin (Pitocin) 10 unit IM ASDIRECTED PRN PRN Reason: Excessive Vaginal Bleeding Sodium Chloride (Saline Flush) 10 ml FLUSH ASDIRECTED PRN PRN Reason: Keep Vein Open Last Admin: 06/08/19 04:31 Dose: 10 ml Sodium Chloride (Saline Flush) 2.5 ml FLUSH ASDIRECTED PRN PRN Reason: Keep Vein Open Sodium Chloride (Normal Saline) 10 ml IV ASDIRECTED PRN PRN Reason: IV Use Discontinued Medications Cefazolin Sodium (Ancef) Confirm Administered Dose 1 gm .ROUTE .STK-MED ONE Stop: 06/08/19 08:00 Citric Acid/Sodium Citrate (Bicitra Solution) 30 ml PO ONETIME ONE Stop: 06/08/19 06:31 Ephedrine Sulfate (Ephedrine Sulfate) Confirm Administered Dose 50 mg .ROUTE .STK-MED ONE Stop: 06/08/19 07:18 Fentanyl (Sublimaze) Confirm Administered Dose 100 mcg .ROUTE .STK-MED ONE Stop: 06/08/19 07:13 Fentanyl (Sublimaze) 50 mcg IVPUSH Q5M PRN PRN Reason: Pain (severe 7-10) Stop: 06/09/19 08:23 Hydroxyzine Pamoate (Vistaril) 25 mg PO ONETIME ONE Stop: 06/08/19 03:51 Last Admin: 06/08/19 04:38 Dose: 25 mg Cefazolin Sodium/Dextrose 2 gm (/ Premix) 50 mls @ 100 mls/hr IV ONETIME ONE Stop: 06/08/19 07:59 Sodium Chloride (Normal Saline) Confirm Administered Dose 20 mls @ as directed .ROUTE .STK-MED ONE Stop: 06/08/19 08:00 Acetaminophen (Ofirmev) Confirm Administered Dose 100 mls @ as directed .ROUTE .STK-MED ONE Stop: 06/08/19 08:28 Ketorolac Tromethamine (Toradol) 30 mg IVPUSH Q6H YUAN Stop: 06/09/19 08:31 Last Admin: 06/09/19 09:58 Dose: Not Given Morphine Sulfate (Duramorph Pf) Confirm Administered Dose 10 mg .ROUTE .STK-MED ONE Stop: 06/08/19 07:19 Nalbuphine HCl (Nubain) 2.5 mg IVPUSH Q3H PRN PRN Reason: Pruritis Stop: 06/09/19 08:23 Octyl Cyanoacrylate (Dermabond Advance) Confirm Administered Dose 1 applic .ROUTE .STK-MED ONE Stop: 06/08/19 07:49 Ondansetron HCl (Zofran) Confirm Administered Dose 4 mg .ROUTE .STK-MED ONE Stop: 06/08/19 07:13 Ondansetron HCl (Zofran) Confirm Administered Dose 4 mg .ROUTE .STK-MED ONE Stop: 06/08/19 08:05 Oxytocin (Pitocin) Confirm Administered Dose 20 unit .ROUTE .STK-MED ONE Stop: 06/08/19 07:18 Phenylephrine HCl (Phenylephrine In Ns 100 Mcg/Ml) Confirm Administered Dose 1 mg .ROUTE .STK-MED ONE Stop: 06/08/19 07:18 Propofol (Diprivan 20 Ml) Confirm Administered Dose 200 mg .ROUTE .STK-MED ONE Stop: 06/08/19 07:13 - Exam General: Reports: Alert, Oriented HEENT: Reports: Pupils Equal, Pupils Reactive, EOMI, Mucous Membr. Moist/[place] Neck: Reports: Supple Lungs: Reports: Clear to Auscultation, Normal Respiratory Effort Cardiovascular: Reports: Regular Rate, Regular Rhythm GI/Abdominal Exam: Normal Bowel Sounds, Soft, Non-Tender, No Organomegaly, No Distention, No Abnormal Bruit, No Mass, Pelvis Stable (Female) Exam: Normal External Exam, Normal Speculum Exam, Normal Bimanual Exam Rectal (Female) Exam: Normal Exam, Normal Rectal Tone Back Exam: Reports: Normal Inspection, Full Range of Motion Extremities: Normal Inspection, Normal Range of Motion, Non-Tender, No Pedal Edema, Normal Capillary Refill Skin: Reports: Warm, Dry, Intact Wound/Incisions: Reports: Healing Well Neurological: Reports: No New Focal Deficit Psy/Mental Status: Reports: Alert, Normal Affect, Normal Mood
== END 2019-06-10 10:40 | disposition home or self-care (01) | DRG 540 ==
LOC: MW.OBCHECK 03:19 → MW.OB 03:20 → MW.OBCHECK 03:47 → MW.OB 03:47 → INTOOBSV 06:30 → OBSVTOIN 06:30 → MW.OB 10:35
PROVIDERS: ADMIT Obstetrics & Gynecology; ATTEND Obstetrics & Gynecology
PROC: 10D00Z1 Extraction of Products of Conception, Low, Open Approach (ICD-10-PCS; principal; 2019-06-08)
DX: O34.211 Maternal care for low transverse scar from previous cesarean delivery (principal); Z37.0 Single live birth; Z3A.38 38 weeks gestation of pregnancy
CPT/HCPCS: 01961; 36415; 59025; 85014; 85018; 85027; 86593; 86850; 86900; 86901; A9270-GY; J0131; J0595; J0690; J1885; J2270; J2370; J2405; J2590; J2704; J3010; J7120

== ENCOUNTER 2024-11-06 21:12 | Emergency (ER) | payer SELFPAY ==
[2024-11-06 21:20] LABS: BASOPHILS ABSOLUTE AUTO 0.03 K/uL (0.00-0.20); BASOPHILS PERCENT AUTO 0.3 % (0.0-1.0); EOSINOPHILS ABSOLUTE AUTO 0.04 K/uL (0.00-0.45); EOSINOPHILS PERCENT AUTO 0.5 % (0.0-6.0); HEMATOCRIT 37.7 % (37.0-47.0); HEMOGLOBIN 13.3 g/dL (12.0-16.0); IMMATURE GRAN ABSOLUTE AUTO 0.01 K/uL (0.00-0.05); IMMATURE GRAN PERCENT AUTO 0.1 % (0.0-0.4); LYMPHOCYTES ABSOLUTE AUTO 1.22 K/uL (1.00-4.80); LYMPHOCYTES PERCENT AUTO 14.1 % (24.0-44.0); MEAN CORPUSCULAR HEMOGLOBIN 30.2 pg (28.0-32.0); MEAN CORPUSCULAR HGB CONC 35.3 g/dL (32.0-36.0); MEAN CORPUSCULAR VOLUME 85.5 fL (83.0-99.0); MEAN PLATELET VOLUME 10.9 fL (9.4-12.3); MONOCYTES ABSOLUTE AUTO 0.44 K/uL (0.00-0.80); MONOCYTES PERCENT AUTO 5.1 % (0.0-8.0); NEUTROPHILS PERCENT AUTO 79.9 % (41.0-71.0); PLATELET COUNT,PLT 219 K/uL (150-400); RED BLOOD CELL COUNT 4.41 M/uL (4.10-5.30); WHITE BLOOD CELL COUNT,WBC 8.64 K/uL (3.9-11.3)
[2024-11-06] MEDS: Ondansetron 4 MG/2 ML SDV IVPUSH ONE (21:34)
[2024-11-06] MEDS: Sodium Chloride 0.9% 1,000 ML IV ONE (21:34)
[2024-11-06 21:44] LABS: A/G RATIO 0.9 (0.9-1.6); ALBUMIN 3.4 g/dL (3.4-5.0); BILIRUBIN TOTAL 0.3 mg/dL (0.2-1.0); CALCIUM 8.6 mg/dL (8.5-10.1); CARBON DIOXIDE,CO2 25.8 mmol/L (21.0-32.0); CREATININE 0.9 mg/dL (0.6-1.0); EST CRCL DRUG DOSING (CG) 62.67 mL/min; MAGNESIUM 1.8 mg/dL (1.8-2.4); POTASSIUM,K 4.3 mmol/L (3.5-5.1); PROTEIN TOTAL,TP 7.1 g/dL (6.4-8.2)
[2024-11-06] MEDS ORDERED: Sodium Chloride 0.9% 1,000 ML IV ONE (22:00)
[2024-11-06] MEDS: droPERidol 2.5 MG/ML SDV IVPUSH ONE (22:08)
[2024-11-06 22:23] LABS: AMPHETAMINES SCREEN, URINE NEGATIVE (CUTOFF=500); BARBITURATE SCREEN,URINE NEGATIVE (CUTOFF=200); BENZODIAZEPINES SCREEN,URINE NEGATIVE (CUTOFF=150); BUPRENORPHINE SCREEN,URINE NEGATIVE (CUTOFF=10); METHADONE SCREEN, URINE NEGATIVE (CUTOFF=200); METHAMPHETAMINES SCREEN, URINE NEGATIVE (CUTOFF=500); OXYCODONE SCREEN,URINE NEGATIVE (CUT0FF=100); PCP SCREEN,URINE NEGATIVE (CUTOFF=25); THC SCREEN,URINE 20 NG/ML NEGATIVE (CUTOFF=50)
== END 2024-11-06 23:01 | disposition home or self-care (01) ==
LOC: MW.ED 21:12
DX: E16.2 Hypoglycemia, unspecified (principal); R11.2 Nausea with vomiting, unspecified; F10.90 Alcohol use, unspecified, uncomplicated
CPT/HCPCS: 36415; 80053; 80305; 80307; 82947; 83735; 84703; 85025; 96361; 96374; 96375; 99285; J1790; J2405; J7030; 99283